=== PATIENT | female | born 1945 | race Caucasian/White ===

== ENCOUNTER 2020-09-16 00:15 | Inpatient (IN) | payer BC, OTHER ==
[2020-09-16] MEDS ORDERED: FUROSEMIDE 40 MG/4 ML INJECTABLE VIAL IVPUSH ONE (02:27)
[2020-09-16] MEDS ORDERED: FUROSEMIDE 40 MG/4 ML INJECTABLE VIAL ONE ×2 (02:51→12:44)
[2020-09-16 02:59] LABS: BASO % 0.9 % (0-2.0); EOS % 0.4 % (0-4.5); HEMATOCRIT 35.5 % (32.4-45.2); HEMOGLOBIN 11.1 GM/dL (10.7-15.3); LYMPH % 6.9 % (8-40); MCH 24.8 pg (25.7-33.7); MCHC 31.2 g/dl (32.0-36.0); MEAN CELL VOLUME 79.6 fl (80-96); MEAN PLT VOLUME 10.5 fl (7.5-11.1); MONO % 6.7 % (3.8-10.2); NEUT % 85.1 % (42.8-82.8); PLATELET COUNT 139 10^3/uL (134-434); RBC 4.46 M/mm3 (3.60-5.2); RDW 18.8 % (11.6-15.6); WHITE BLOOD COUNT 8.1 K/mm3 (4.0-10.0)
[2020-09-16 03:21] LABS: ALBUMIN 3.2 g/dl (3.4-5.0); BLOOD UREA NITROGEN 50.5 mg/dL (7-18); CALCIUM 8.5 mg/dL (8.5-10.1)
[2020-09-16 03:25] LABS: CREATININE 1.9 mg/dL (0.55-1.3)
[2020-09-16 03:26] LABS: BILIRUBIN,TOTAL 0.9 mg/dL (0.2-1); TOT PROT 6.1 g/dl (6.4-8.2)
[2020-09-16 03:29] LABS: N-TERMINAL BNP 16593.1 pg/ml (5-450)
[2020-09-16] MEDS ORDERED: CALCIUM GLUCONATE 10% - 1,000 MG/10 ML VIAL IVPUSH ONE (06:40)
[2020-09-16] MEDS ORDERED: DEXTROSE 50%-WATER - 25 GM/50 ML VIAL IVPUSH ONE (07:04)
[2020-09-16] MEDS ORDERED: INSULIN REGULAR HUMAN 100 UNITS/ML *VIAL IVPUSH ONE (07:04)
[2020-09-16] MEDS ORDERED: CALCIUM GLUCONATE 10% - 1,000 MG/10 ML VIAL ONE (07:47)
[2020-09-16] MEDS ORDERED: DEXTROSE 50%-WATER - 25 GM/50 ML VIAL ONE (07:54)
[2020-09-16] MEDS ORDERED: ALBUTEROL SO4 HFA INHALER IH ONE (08:03)
[2020-09-16] MEDS: ALBUTEROL SO4 HFA INHALER IH ONE ×2 (08:15→08:37)
[2020-09-16] MEDS: INSULIN SLIDING SCALE (NOVOLOG) 1 VIAL SQ SCH ×3 (08:38→17:22)
[2020-09-16 08:42] LABS: CALCIUM 8.9 mg/dL (8.5-10.1)
[2020-09-16 08:43] LABS: ALBUMIN 3.4 g/dl (3.4-5.0); BLOOD UREA NITROGEN 46.2 mg/dL (7-18)
[2020-09-16 08:46] LABS: CREATININE 1.7 mg/dL (0.55-1.3)
[2020-09-16 08:47] LABS: BILIRUBIN,TOTAL 0.8 mg/dL (0.2-1)
[2020-09-16 08:48] LABS: TOT PROT 6.1 g/dl (6.4-8.2)
[2020-09-16] MEDS ORDERED: ASPIRIN COATED 81 MG TABLET.EC ONE (09:21)
[2020-09-16] MEDS ORDERED: amLODIPine BESYLATE 5 MG TABLET (FP) ONE (09:22)
[2020-09-16] MEDS ORDERED: PT OWN MED DRAWER 7, Y5N ONE (09:23)
[2020-09-16] MEDS: ASPIRIN COATED 81 MG TABLET.EC PO SCH (09:37)
[2020-09-16] MEDS: ISOSORBIDE MONONITRATE 30 MG TAB.SR.24H (FP) PO SCH (09:37)
[2020-09-16] MEDS: amLODIPine BESYLATE 5 MG TABLET (FP) PO SCH (09:37)
[2020-09-16] MEDS ORDERED: PATIENT'S OWN MEDICATION (NON-FORMULARY) (Icosapent Ethyl [Vascepa] 1 GM Capsule) PO SCH (10:00)
[2020-09-16 10:19] LABS: MAGNESIUM 2.1 mg/dL (1.8-2.4)
[2020-09-16 10:23] LABS: PHOSPHOROUS 4.3 mg/dL (2.5-4.9)
[2020-09-16] MEDS ORDERED: SODIUM ZIRCONIUM CYCLOSILICATE (LOKELMA) 5 GM PACKET ONE (12:43)
[2020-09-16] MEDS ORDERED: HEPARIN NA (PORCINE) 5,000 UNITS/ML 1ML VIAL ONE (12:44)
[2020-09-16] MEDS ORDERED: SODIUM ZIRCONIUM CYCLOSILICATE (LOKELMA) 5 GM PACKET PO ONE (12:45)
[2020-09-16] MEDS: HEPARIN NA (PORCINE) 5,000 UNITS/ML 1ML VIAL SQ SCH ×2 (13:01→21:14)
[2020-09-16] MEDS: FUROSEMIDE 40 MG/4 ML INJECTABLE VIAL IVPUSH SCH (13:01)
[2020-09-16 20:05] VITALS: BMI 29.4
[2020-09-16] MEDS: ATORVASTATIN CA 80 MG TABLET (FP) PO SCH (21:14)
[2020-09-16] MEDS ORDERED: FUROSEMIDE 40 MG/4 ML INJECTABLE VIAL IVPUSH SCH (22:00)
[2020-09-17] MEDS: FUROSEMIDE 40 MG/4 ML INJECTABLE VIAL IVPUSH SCH ×2 (06:05→13:11)
[2020-09-17] MEDS: HEPARIN NA (PORCINE) 5,000 UNITS/ML 1ML VIAL SQ SCH ×3 (06:05→21:39)
[2020-09-17] MEDS: INSULIN SLIDING SCALE (NOVOLOG) 1 VIAL SQ SCH ×4 (06:08→17:00)
[2020-09-17 07:29] LABS: HEMATOCRIT 33.6 % (32.4-45.2); HEMOGLOBIN 10.6 GM/dL (10.7-15.3); MCH 24.9 pg (25.7-33.7); MCHC 31.6 g/dl (32.0-36.0); MEAN CELL VOLUME 78.8 fl (80-96); MEAN PLT VOLUME 10.5 fl (7.5-11.1); PLATELET COUNT 114 10^3/uL (134-434); RBC 4.26 M/mm3 (3.60-5.2); RDW 18.6 % (11.6-15.6)
[2020-09-17 07:40] LABS: CALCIUM 8.5 mg/dL (8.5-10.1)
[2020-09-17 07:41] LABS: BLOOD UREA NITROGEN 50.1 mg/dL (7-18)
[2020-09-17 07:48] LABS: CREATININE 1.5 mg/dL (0.55-1.3)
[2020-09-17] MEDS: amLODIPine BESYLATE 5 MG TABLET (FP) PO SCH (09:31)
[2020-09-17] MEDS: ISOSORBIDE MONONITRATE 30 MG TAB.SR.24H (FP) PO SCH (09:31)
[2020-09-17] MEDS: ASPIRIN COATED 81 MG TABLET.EC PO SCH (09:31)
[2020-09-17] MEDS: ATORVASTATIN CA 80 MG TABLET (FP) PO SCH (21:39)
[2020-09-18] MEDS: HEPARIN NA (PORCINE) 5,000 UNITS/ML 1ML VIAL SQ SCH ×3 (05:57→21:59)
[2020-09-18] MEDS: FUROSEMIDE 40 MG/4 ML INJECTABLE VIAL IVPUSH SCH ×2 (05:58→13:04)
[2020-09-18] MEDS: INSULIN SLIDING SCALE (NOVOLOG) 1 VIAL SQ SCH ×3 (06:03→17:51)
[2020-09-18 07:25] LABS: EOS % 3.2 % (0-4.5); HEMATOCRIT 34.1 % (32.4-45.2); HEMOGLOBIN 10.7 GM/dL (10.7-15.3); LYMPH % 16.3 % (8-40); MCH 24.8 pg (25.7-33.7); MCHC 31.4 g/dl (32.0-36.0); MEAN PLT VOLUME 10.2 fl (7.5-11.1); MONO % 8.1 % (3.8-10.2); NEUT % 71.4 % (42.8-82.8); PLATELET COUNT 127 10^3/uL (134-434); RBC 4.32 M/mm3 (3.60-5.2); RDW 18.9 % (11.6-15.6); WHITE BLOOD COUNT 6.4 K/mm3 (4.0-10.0)
[2020-09-18 08:02] LABS: ALBUMIN 3.2 g/dl (3.4-5.0); BLOOD UREA NITROGEN 46.6 mg/dL (7-18); MAGNESIUM 1.8 mg/dL (1.8-2.4)
[2020-09-18 08:05] LABS: CREATININE 1.4 mg/dL (0.55-1.3)
[2020-09-18 08:06] LABS: PHOSPHOROUS 4.2 mg/dL (2.5-4.9)
[2020-09-18 08:07] LABS: BILIRUBIN,TOTAL 1.2 mg/dL (0.2-1); TOT PROT 5.9 g/dl (6.4-8.2)
[2020-09-18] MEDS: amLODIPine BESYLATE 5 MG TABLET (FP) PO SCH (10:05)
[2020-09-18] MEDS: ASPIRIN COATED 81 MG TABLET.EC PO SCH (10:05)
[2020-09-18] MEDS: ISOSORBIDE MONONITRATE 30 MG TAB.SR.24H (FP) PO SCH (10:05)
[2020-09-18] MEDS ORDERED: MAGNESIUM SULF 50% (8.12 MEQ/2 ML-1 GM VIAL) IVPB ONE (11:37)
[2020-09-18] MEDS ORDERED: DOCUSATE SODIUM 100 MG CAPSULE (FP) PO ONE (16:36)
[2020-09-18] MEDS: ATORVASTATIN CA 80 MG TABLET (FP) PO SCH (21:58)
[2020-09-19] MEDS: FUROSEMIDE 40 MG/4 ML INJECTABLE VIAL IVPUSH SCH ×2 (06:43→14:06)
[2020-09-19] MEDS: INSULIN SLIDING SCALE (NOVOLOG) 1 VIAL SQ SCH ×3 (06:44→17:00)
[2020-09-19] MEDS: HEPARIN NA (PORCINE) 5,000 UNITS/ML 1ML VIAL SQ SCH ×3 (06:44→21:38)
[2020-09-19 07:30] LABS: BASO % 1.1 % (0-2.0); EOS % 2.5 % (0-4.5); HEMATOCRIT 31.9 % (32.4-45.2); HEMOGLOBIN 10.1 GM/dL (10.7-15.3); LYMPH % 21.2 % (8-40); MCH 24.8 pg (25.7-33.7); MCHC 31.8 g/dl (32.0-36.0); MEAN CELL VOLUME 77.9 fl (80-96); MONO % 10.3 % (3.8-10.2); NEUT % 64.9 % (42.8-82.8); PLATELET COUNT 129 10^3/uL (134-434); RBC 4.09 M/mm3 (3.60-5.2); RDW 18.3 % (11.6-15.6); WHITE BLOOD COUNT 5.9 K/mm3 (4.0-10.0)
[2020-09-19 08:04] LABS: ALBUMIN 3.1 g/dl (3.4-5.0); BLOOD UREA NITROGEN 40.5 mg/dL (7-18)
[2020-09-19 08:05] LABS: BILIRUBIN,TOTAL 1.2 mg/dL (0.2-1); MAGNESIUM 1.7 mg/dL (1.8-2.4); TOT PROT 5.8 g/dl (6.4-8.2)
[2020-09-19 08:07] LABS: CREATININE 1.3 mg/dL (0.55-1.3)
[2020-09-19 08:08] LABS: CHOLESTEROL 118 mg/dL (50-200)
[2020-09-19 08:09] LABS: LDL CHOLESTEROL (ONLY SJRH) 63 mg/dL (5-100); TRIGLYCERIDES 77 mg/dL (0-150)
[2020-09-19 08:11] LABS: HDL CHOLESTEROL 48 mg/dL (40-60)
[2020-09-19] MEDS ORDERED: POTASSIUM CHLORIDE TABS 20 MEQ TABLET.ER (FP) PO ONE (08:59)
[2020-09-19] MEDS ORDERED: MAGNESIUM SULF 50% (8.12 MEQ/2 ML-1 GM VIAL) IVPB ONE (08:59)
[2020-09-19] MEDS: amLODIPine BESYLATE 5 MG TABLET (FP) PO SCH (09:00)
[2020-09-19] MEDS: ASPIRIN COATED 81 MG TABLET.EC PO SCH (09:00)
[2020-09-19] MEDS: ISOSORBIDE MONONITRATE 30 MG TAB.SR.24H (FP) PO SCH (09:00)
[2020-09-19] MEDS ORDERED: METOLAZONE 5 MG TABLET PO SCH (13:30)
[2020-09-19] MEDS: METOLAZONE 5 MG TABLET PO SCH (13:41)
[2020-09-19] MEDS ORDERED: INSULIN (NOVOLOG) ASPART 100 UNITS/ML 10ML VIAL ONE (16:56)
[2020-09-19] MEDS: ATORVASTATIN CA 80 MG TABLET (FP) PO SCH (21:39)
[2020-09-20] MEDS: HEPARIN NA (PORCINE) 5,000 UNITS/ML 1ML VIAL SQ SCH ×3 (06:00→21:07)
[2020-09-20] MEDS: FUROSEMIDE 40 MG/4 ML INJECTABLE VIAL IVPUSH SCH ×2 (06:01→13:54)
[2020-09-20] MEDS: INSULIN SLIDING SCALE (NOVOLOG) 1 VIAL SQ SCH ×3 (06:03→17:17)
[2020-09-20 08:11] LABS: BASO % 1.1 % (0-2.0); HEMATOCRIT 34.1 % (32.4-45.2); HEMOGLOBIN 10.5 GM/dL (10.7-15.3); LYMPH % 24.1 % (8-40); MCH 24.1 pg (25.7-33.7); MCHC 30.7 g/dl (32.0-36.0); MEAN CELL VOLUME 78.5 fl (80-96); MEAN PLT VOLUME 10.5 fl (7.5-11.1); MONO % 10.1 % (3.8-10.2); NEUT % 61.7 % (42.8-82.8); PLATELET COUNT 160 10^3/uL (134-434); RBC 4.35 M/mm3 (3.60-5.2); RDW 18.8 % (11.6-15.6); WHITE BLOOD COUNT 6.7 K/mm3 (4.0-10.0)
[2020-09-20 08:32] LABS: ALBUMIN 3.4 g/dl (3.4-5.0); BLOOD UREA NITROGEN 48.1 mg/dL (7-18); CALCIUM 9.3 mg/dL (8.5-10.1)
[2020-09-20 08:35] LABS: CREATININE 1.6 mg/dL (0.55-1.3)
[2020-09-20 08:36] LABS: PHOSPHOROUS 3.5 mg/dL (2.5-4.9)
[2020-09-20 08:37] LABS: BILIRUBIN,TOTAL 1.3 mg/dL (0.2-1); TOT PROT 6.5 g/dl (6.4-8.2)
[2020-09-20] MEDS: ASPIRIN COATED 81 MG TABLET.EC PO SCH (11:10)
[2020-09-20] MEDS: amLODIPine BESYLATE 5 MG TABLET (FP) PO SCH (11:10)
[2020-09-20] MEDS: ISOSORBIDE MONONITRATE 30 MG TAB.SR.24H (FP) PO SCH (11:10)
[2020-09-20] MEDS ORDERED: PT OWN MED DRAWER 7, Y5N ONE (13:27)
[2020-09-20] MEDS: METOLAZONE 5 MG TABLET PO SCH (13:29)
[2020-09-20] MEDS: POLYETHYLENE GLYCOL (HEALTHYLAX) 3350 17 GM PACKET PO SCH (18:38)
[2020-09-20] MEDS: ATORVASTATIN CA 80 MG TABLET (FP) PO SCH (21:07)
[2020-09-21] MEDS: FUROSEMIDE 40 MG/4 ML INJECTABLE VIAL IVPUSH SCH ×2 (05:35→15:10)
[2020-09-21] MEDS: HEPARIN NA (PORCINE) 5,000 UNITS/ML 1ML VIAL SQ SCH ×3 (05:35→21:00)
[2020-09-21] MEDS: INSULIN SLIDING SCALE (NOVOLOG) 1 VIAL SQ SCH ×3 (06:13→16:31)
[2020-09-21 08:19] LABS: BASO % 0.9 % (0-2.0); EOS % 2.6 % (0-4.5); HEMATOCRIT 32.7 % (32.4-45.2); HEMOGLOBIN 10.5 GM/dL (10.7-15.3); LYMPH % 21.7 % (8-40); MCHC 32.2 g/dl (32.0-36.0); MEAN CELL VOLUME 77.5 fl (80-96); MEAN PLT VOLUME 10.6 fl (7.5-11.1); MONO % 9.3 % (3.8-10.2); NEUT % 65.5 % (42.8-82.8); PLATELET COUNT 144 10^3/uL (134-434); RBC 4.22 M/mm3 (3.60-5.2); RDW 18.8 % (11.6-15.6); WHITE BLOOD COUNT 7.3 K/mm3 (4.0-10.0)
[2020-09-21 08:38] LABS: ALBUMIN 3.6 g/dl (3.4-5.0); BLOOD UREA NITROGEN 52.2 mg/dL (7-18); CALCIUM 9.6 mg/dL (8.5-10.1)
[2020-09-21 08:41] LABS: BILIRUBIN,TOTAL 1.5 mg/dL (0.2-1); CREATININE 1.5 mg/dL (0.55-1.3)
[2020-09-21 08:42] LABS: PHOSPHOROUS 3.3 mg/dL (2.5-4.9); TOT PROT 6.7 g/dl (6.4-8.2)
[2020-09-21] MEDS: ASPIRIN COATED 81 MG TABLET.EC PO SCH (09:49)
[2020-09-21] MEDS: POLYETHYLENE GLYCOL (HEALTHYLAX) 3350 17 GM PACKET PO SCH (09:49)
[2020-09-21] MEDS: ISOSORBIDE MONONITRATE 30 MG TAB.SR.24H (FP) PO SCH (09:49)
[2020-09-21] MEDS: amLODIPine BESYLATE 5 MG TABLET (FP) PO SCH (09:49)
[2020-09-21] MEDS: ATORVASTATIN CA 80 MG TABLET (FP) PO SCH (21:13)
[2020-09-22] MEDS: HEPARIN NA (PORCINE) 5,000 UNITS/ML 1ML VIAL SQ SCH ×3 (05:48→21:10)
[2020-09-22] MEDS: FUROSEMIDE 40 MG/4 ML INJECTABLE VIAL IVPUSH SCH (05:48)
[2020-09-22] MEDS: INSULIN SLIDING SCALE (NOVOLOG) 1 VIAL SQ SCH ×3 (06:01→16:33)
[2020-09-22 08:06] LABS: BASO % 0.7 % (0-2.0); EOS % 2.1 % (0-4.5); HEMATOCRIT 32.3 % (32.4-45.2); HEMOGLOBIN 10.1 GM/dL (10.7-15.3); LYMPH % 21.4 % (8-40); MCH 24.5 pg (25.7-33.7); MCHC 31.3 g/dl (32.0-36.0); MEAN CELL VOLUME 78.2 fl (80-96); MEAN PLT VOLUME 11.4 fl (7.5-11.1); MONO % 13.4 % (3.8-10.2); NEUT % 62.4 % (42.8-82.8); PLATELET COUNT 129 10^3/uL (134-434); RBC 4.13 M/mm3 (3.60-5.2); RDW 18.8 % (11.6-15.6); WHITE BLOOD COUNT 5.6 K/mm3 (4.0-10.0)
[2020-09-22 08:29] LABS: ALBUMIN 3.3 g/dl (3.4-5.0)
[2020-09-22 08:30] LABS: BLOOD UREA NITROGEN 51.1 mg/dL (7-18)
[2020-09-22 08:33] LABS: CREATININE 1.9 mg/dL (0.55-1.3); PHOSPHOROUS 3.4 mg/dL (2.5-4.9)
[2020-09-22 08:34] LABS: BILIRUBIN,TOTAL 1.3 mg/dL (0.2-1); TOT PROT 6.2 g/dl (6.4-8.2)
[2020-09-22] MEDS: POLYETHYLENE GLYCOL (HEALTHYLAX) 3350 17 GM PACKET PO SCH (09:29)
[2020-09-22] MEDS: ISOSORBIDE MONONITRATE 30 MG TAB.SR.24H (FP) PO SCH (09:29)
[2020-09-22] MEDS: amLODIPine BESYLATE 5 MG TABLET (FP) PO SCH (09:29)
[2020-09-22] MEDS: ASPIRIN COATED 81 MG TABLET.EC PO SCH (09:29)
[2020-09-22] MEDS ORDERED: MAGNESIUM HYDROX 2400MG/30ML ORAL SUSPENSION 30 ML CUP PO ONE (12:00)
[2020-09-22] MEDS: BACITRACIN 15 GM TUBE TOPICAL OINTMENT TP SCH ×2 (16:29→21:12)
[2020-09-22] MEDS: ATORVASTATIN CA 80 MG TABLET (FP) PO SCH (21:10)
[2020-09-22] MEDS: SENNOSIDES/DOCUSATE COMBO (SENNA PLUS) TABLET (UD) PO SCH (21:10)
[2020-09-23] MEDS: HEPARIN NA (PORCINE) 5,000 UNITS/ML 1ML VIAL SQ SCH ×3 (06:12→21:31)
[2020-09-23] MEDS: INSULIN SLIDING SCALE (NOVOLOG) 1 VIAL SQ SCH ×3 (06:38→17:16)
[2020-09-23 08:11] LABS: BASO % 0.9 % (0-2.0); EOS % 2.3 % (0-4.5); HEMATOCRIT 33.2 % (32.4-45.2); HEMOGLOBIN 10.3 GM/dL (10.7-15.3); LYMPH % 22.5 % (8-40); MCH 24.4 pg (25.7-33.7); MCHC 30.9 g/dl (32.0-36.0); MEAN CELL VOLUME 78.8 fl (80-96); MEAN PLT VOLUME 11.1 fl (7.5-11.1); NEUT % 61.3 % (42.8-82.8); PLATELET COUNT 127 10^3/uL (134-434); RBC 4.21 M/mm3 (3.60-5.2); RDW 18.7 % (11.6-15.6); WHITE BLOOD COUNT 6.4 K/mm3 (4.0-10.0)
[2020-09-23 08:36] LABS: CALCIUM 9.1 mg/dL (8.5-10.1)
[2020-09-23 08:37] LABS: ALBUMIN 3.6 g/dl (3.4-5.0); BLOOD UREA NITROGEN 55.6 mg/dL (7-18); MAGNESIUM 2.4 mg/dL (1.8-2.4)
[2020-09-23 08:39] LABS: BILIRUBIN,TOTAL 1.4 mg/dL (0.2-1); TOT PROT 6.9 g/dl (6.4-8.2)
[2020-09-23 08:40] LABS: CREATININE 2.1 mg/dL (0.55-1.3)
[2020-09-23] MEDS ORDERED: FUROSEMIDE 40 MG/4 ML INJECTABLE VIAL IVPUSH SCH (10:00)
[2020-09-23] MEDS: ASPIRIN COATED 81 MG TABLET.EC PO SCH (10:02)
[2020-09-23] MEDS: BACITRACIN 15 GM TUBE TOPICAL OINTMENT TP SCH ×2 (10:02→21:35)
[2020-09-23] MEDS: ISOSORBIDE MONONITRATE 30 MG TAB.SR.24H (FP) PO SCH (10:02)
[2020-09-23] MEDS: amLODIPine BESYLATE 5 MG TABLET (FP) PO SCH (10:02)
[2020-09-23 10:48] LABS: N-TERMINAL BNP 12031.6 pg/ml (5-450)
[2020-09-23] MEDS ORDERED: SODIUM PHOSPHATE/NA BIPHOS 133 ML ENEMA RC ONE (13:33)
[2020-09-23] MEDS: SENNOSIDES/DOCUSATE COMBO (SENNA PLUS) TABLET (UD) PO SCH (21:31)
[2020-09-23] MEDS: ATORVASTATIN CA 80 MG TABLET (FP) PO SCH (21:31)
[2020-09-24] MEDS: HEPARIN NA (PORCINE) 5,000 UNITS/ML 1ML VIAL SQ SCH ×2 (06:20→14:57)
[2020-09-24] MEDS: INSULIN SLIDING SCALE (NOVOLOG) 1 VIAL SQ SCH ×2 (06:21→12:51)
[2020-09-24 08:12] LABS: BASO % 0.9 % (0-2.0); EOS % 2.1 % (0-4.5); HEMATOCRIT 32.2 % (32.4-45.2); LYMPH % 18.7 % (8-40); MCH 24.5 pg (25.7-33.7); MCHC 31.1 g/dl (32.0-36.0); MEAN CELL VOLUME 78.7 fl (80-96); NEUT % 66.3 % (42.8-82.8); PLATELET COUNT 130 10^3/uL (134-434); RBC 4.09 M/mm3 (3.60-5.2); RDW 18.3 % (11.6-15.6); WHITE BLOOD COUNT 6.3 K/mm3 (4.0-10.0)
[2020-09-24 08:40] LABS: ALBUMIN 3.3 g/dl (3.4-5.0); BLOOD UREA NITROGEN 61.5 mg/dL (7-18); CALCIUM 8.7 mg/dL (8.5-10.1); MAGNESIUM 2.4 mg/dL (1.8-2.4)
[2020-09-24 08:43] LABS: CREATININE 1.8 mg/dL (0.55-1.3)
[2020-09-24 08:45] LABS: BILIRUBIN,TOTAL 1.1 mg/dL (0.2-1); TOT PROT 6.3 g/dl (6.4-8.2)
[2020-09-24] MEDS: BACITRACIN 15 GM TUBE TOPICAL OINTMENT TP SCH (09:07)
[2020-09-24] MEDS: ISOSORBIDE MONONITRATE 30 MG TAB.SR.24H (FP) PO SCH (09:07)
[2020-09-24] MEDS: amLODIPine BESYLATE 5 MG TABLET (FP) PO SCH (09:07)
[2020-09-24] MEDS: ASPIRIN COATED 81 MG TABLET.EC PO SCH (09:07)
[2020-09-24] MEDS ORDERED: INSULIN (LEVEMIR) 100 UNITS/ML UNITS SQ ONE (12:55)
[2020-09-24] MEDS ORDERED: INSULIN (NOVOLOG) ASPART 100 UNITS/ML 10ML VIAL ONE (12:55)
[2020-09-24 15:19] VITALS: BP 133/59; PULSE 81; TEMP 97.8
== END 2020-09-24 16:11 | disposition home or self-care (01) | DRG 291 ==
LOC: JER 00:15 → JERBED 02:44 → J4W 19:10
PROVIDERS: ADMIT Hospitalist; ATTEND Internal Medicine
DX: I13.0 Hypertensive heart and chronic kidney disease with heart failure and stage 1 through stage 4 chronic kidney disease, or unspecified chronic kidney disease (principal); I50.33 Acute on chronic diastolic (congestive) heart failure; N17.9 Acute kidney failure, unspecified; R18.8 Other ascites; E87.3 Alkalosis; I45.10 Unspecified right bundle-branch block; E78.5 Hyperlipidemia, unspecified; K59.09 Other constipation; I25.10 Atherosclerotic heart disease of native coronary artery without angina pectoris; J45.909 Unspecified asthma, uncomplicated; K21.9 Gastro-esophageal reflux disease without esophagitis; K57.90 Diverticulosis of intestine, part unspecified, without perforation or abscess without bleeding; E87.5 Hyperkalemia; I27.20 Pulmonary hypertension, unspecified; I35.0 Nonrheumatic aortic (valve) stenosis; E11.22 Type 2 diabetes mellitus with diabetic chronic kidney disease; N18.30 Chronic kidney disease, stage 3 unspecified; I65.21 Occlusion and stenosis of right carotid artery; Z95.1 Presence of aortocoronary bypass graft; Z95.5 Presence of coronary angioplasty implant and graft
CPT/HCPCS: 36415; 71045-TC-FY; 74176-TC; 80048; 80053; 80061; 82550; 82962; 83036; 83721; 83735; 83880; 84100; 84443; 84484; 85025; 85027; 93005; 93010; 93306-TC; 97116-GP; 97161-GP; 99285-25; C9803; J1644; U0003; U0005

== ENCOUNTER 2021-02-25 11:49 | Inpatient (IN) | payer BC, OTHER ==
[2021-02-25] MEDS ORDERED: FUROSEMIDE 40 MG/4 ML INJECTABLE VIAL ONE (13:38)
[2021-02-25] MEDS: FUROSEMIDE 40 MG/4 ML INJECTABLE VIAL IVPUSH SCH (13:59)
[2021-02-25 14:35] LABS: BASO % 0.5 % (0-2.0); EOS % 0.3 % (0-4.5); HEMATOCRIT 36.7 % (32.4-45.2); HEMOGLOBIN 11.4 GM/dL (10.7-15.3); LYMPH % 5.5 % (8-40); MCH 23.9 pg (25.7-33.7); MCHC 31.2 g/dl (32.0-36.0); MEAN CELL VOLUME 76.7 fl (80-96); MONO % 7.6 % (3.8-10.2); NEUT % 86.1 % (42.8-82.8); PLATELET COUNT 175 10^3/uL (134-434); RBC 4.78 M/mm3 (3.60-5.2); RDW 19.3 % (11.6-15.6); WHITE BLOOD COUNT 9.4 K/mm3 (4.0-10.0)
[2021-02-25 14:55] LABS: CALCIUM 9.4 mg/dL (8.5-10.1)
[2021-02-25 14:56] LABS: ALBUMIN 3.1 g/dl (3.4-5.0)
[2021-02-25 14:59] LABS: CREATININE 1.5 mg/dL (0.55-1.3)
[2021-02-25 15:00] LABS: BILIRUBIN,TOTAL 1.4 mg/dL (0.2-1); TOT PROT 7.2 g/dl (6.4-8.2)
[2021-02-25 15:05] LABS: N-TERMINAL BNP 27523.6 pg/ml (5-450)
[2021-02-25] MEDS: HEPARIN NA (PORCINE) 5,000 UNITS/ML 1ML VIAL SQ SCH (22:30)
[2021-02-25] MEDS: INSULIN SLIDING SCALE (NOVOLOG) 1 VIAL SQ SCH (22:30)
[2021-02-25] MEDS: ATORVASTATIN CA 80 MG TABLET (FP) PO SCH (22:30)
[2021-02-26] MEDS: HEPARIN NA (PORCINE) 5,000 UNITS/ML 1ML VIAL SQ SCH ×3 (06:00→21:50)
[2021-02-26 07:03] LABS: BASO % 0.4 % (0-2.0); EOS % 0.1 % (0-4.5); HEMATOCRIT 32.2 % (32.4-45.2); HEMOGLOBIN 10.2 GM/dL (10.7-15.3); MCH 24.4 pg (25.7-33.7); MCHC 31.7 g/dl (32.0-36.0); MEAN PLT VOLUME 9.7 fl (7.5-11.1); MONO % 9.3 % (3.8-10.2); NEUT % 85.2 % (42.8-82.8); PLATELET COUNT 151 10^3/uL (134-434); RBC 4.18 M/mm3 (3.60-5.2); RDW 19.2 % (11.6-15.6); WHITE BLOOD COUNT 9.5 K/mm3 (4.0-10.0)
[2021-02-26 07:30] LABS: BLOOD UREA NITROGEN 51.9 mg/dL (7-18); CALCIUM 9.2 mg/dL (8.5-10.1); MAGNESIUM 2.6 mg/dL (1.8-2.4)
[2021-02-26 07:34] LABS: CREATININE 1.4 mg/dL (0.55-1.3); PHOSPHOROUS 4.2 mg/dL (2.5-4.9)
[2021-02-26 07:35] LABS: BILIRUBIN,TOTAL 1.4 mg/dL (0.2-1); TOT PROT 6.5 g/dl (6.4-8.2)
[2021-02-26] MEDS: INSULIN SLIDING SCALE (NOVOLOG) 1 VIAL SQ SCH ×4 (07:45→21:55)
[2021-02-26] MEDS: ASPIRIN 81 MG CHEWABLE TABLETS PO SCH (10:36)
[2021-02-26] MEDS: ISOSORBIDE MONONITRATE 30 MG TAB.SR.24H (FP) PO SCH (10:36)
[2021-02-26] MEDS: FUROSEMIDE 40 MG/4 ML INJECTABLE VIAL IVPUSH SCH ×2 (10:37→14:07)
[2021-02-26] MEDS ORDERED: PT OWN MED DRAWER 7, Y5N ONE ×2 (11:28→21:28)
[2021-02-26 12:28] VITALS: BMI 26.4
[2021-02-26 13:06] LABS: CHOLESTEROL 98 mg/dL (50-200); TRIGLYCERIDES 82 mg/dL (0-150)
[2021-02-26 13:08] LABS: LDL CHOLESTEROL (ONLY SJRH) 41 mg/dL (5-100)
[2021-02-26 13:09] LABS: HDL CHOLESTEROL 40 mg/dL (40-60)
[2021-02-26] MEDS ORDERED: FUROSEMIDE 40 MG/4 ML INJECTABLE VIAL IVPUSH ONE (14:00)
[2021-02-26] MEDS: SACUBITRIL/VALSARTAN 24 MG-26 MG TABLET PO SCH (21:50)
[2021-02-26] MEDS: ATORVASTATIN CA 80 MG TABLET (FP) PO SCH (21:55)
[2021-02-27] MEDS: FUROSEMIDE 40 MG/4 ML INJECTABLE VIAL IVPUSH SCH ×2 (06:18→15:39)
[2021-02-27] MEDS: HEPARIN NA (PORCINE) 5,000 UNITS/ML 1ML VIAL SQ SCH ×3 (06:18→21:31)
[2021-02-27] MEDS: INSULIN SLIDING SCALE (NOVOLOG) 1 VIAL SQ SCH ×4 (06:19→21:31)
[2021-02-27 06:58] LABS: HEMATOCRIT 34.6 % (32.4-45.2); HEMOGLOBIN 10.7 GM/dL (10.7-15.3); MCH 23.9 pg (25.7-33.7); MCHC 30.8 g/dl (32.0-36.0); MEAN CELL VOLUME 77.6 fl (80-96); PLATELET COUNT 179 10^3/uL (134-434); RBC 4.46 M/mm3 (3.60-5.2); RDW 19.2 % (11.6-15.6)
[2021-02-27 07:21] LABS: CALCIUM 8.7 mg/dL (8.5-10.1)
[2021-02-27 07:22] LABS: ALBUMIN 2.5 g/dl (3.4-5.0); BLOOD UREA NITROGEN 55.9 mg/dL (7-18); MAGNESIUM 2.4 mg/dL (1.8-2.4)
[2021-02-27 07:24] LABS: CREATININE 1.4 mg/dL (0.55-1.3)
[2021-02-27 07:25] LABS: PHOSPHOROUS 3.3 mg/dL (2.5-4.9)
[2021-02-27 07:26] LABS: BILIRUBIN,TOTAL 1.4 mg/dL (0.2-1); TOT PROT 6.1 g/dl (6.4-8.2)
[2021-02-27] MEDS ORDERED: PT OWN MED DRAWER 7, Y5N ONE ×2 (08:06→11:26)
[2021-02-27] MEDS: ISOSORBIDE MONONITRATE 30 MG TAB.SR.24H (FP) PO SCH (10:23)
[2021-02-27] MEDS: SACUBITRIL/VALSARTAN 24 MG-26 MG TABLET PO SCH ×2 (10:23→21:31)
[2021-02-27] MEDS: ASPIRIN 81 MG CHEWABLE TABLETS PO SCH (10:23)
[2021-02-27] MEDS: ATORVASTATIN CA 80 MG TABLET (FP) PO SCH (21:31)
[2021-02-28] MEDS: FUROSEMIDE 40 MG/4 ML INJECTABLE VIAL IVPUSH SCH ×2 (06:33→13:16)
[2021-02-28] MEDS: INSULIN SLIDING SCALE (NOVOLOG) 1 VIAL SQ SCH ×4 (06:33→21:07)
[2021-02-28] MEDS: HEPARIN NA (PORCINE) 5,000 UNITS/ML 1ML VIAL SQ SCH ×3 (06:33→21:07)
[2021-02-28 07:20] LABS: HEMATOCRIT 36.7 % (32.4-45.2); HEMOGLOBIN 11.5 GM/dL (10.7-15.3); MCHC 31.3 g/dl (32.0-36.0); MEAN CELL VOLUME 76.5 fl (80-96); MEAN PLT VOLUME 9.2 fl (7.5-11.1); PLATELET COUNT 198 10^3/uL (134-434); RDW 19.1 % (11.6-15.6); WHITE BLOOD COUNT 7.9 K/mm3 (4.0-10.0)
[2021-02-28 07:28] LABS: CALCIUM 8.8 mg/dL (8.5-10.1)
[2021-02-28 07:29] LABS: BLOOD UREA NITROGEN 53.2 mg/dL (7-18); MAGNESIUM 2.3 mg/dL (1.8-2.4)
[2021-02-28 07:32] LABS: CREATININE 1.4 mg/dL (0.55-1.3); PHOSPHOROUS 2.7 mg/dL (2.5-4.9)
[2021-02-28] MEDS ORDERED: PT OWN MED DRAWER 7, Y5N ONE ×2 (09:04→20:44)
[2021-02-28] MEDS: ASPIRIN 81 MG CHEWABLE TABLETS PO SCH (10:06)
[2021-02-28] MEDS: ISOSORBIDE MONONITRATE 30 MG TAB.SR.24H (FP) PO SCH (10:06)
[2021-02-28] MEDS: SACUBITRIL/VALSARTAN 24 MG-26 MG TABLET PO SCH ×2 (10:06→21:07)
[2021-02-28] MEDS ORDERED: NAPH,MB-DB/K PH,MBDB POWDER PACKET PO ONE (10:08)
[2021-02-28] MEDS: SPIRONOLACTONE 25 MG TABLET PO SCH (15:47)
[2021-02-28] MEDS: ATORVASTATIN CA 80 MG TABLET (FP) PO SCH (21:07)
[2021-03-01] MEDS: HEPARIN NA (PORCINE) 5,000 UNITS/ML 1ML VIAL SQ SCH ×3 (05:42→21:30)
[2021-03-01] MEDS: INSULIN SLIDING SCALE (NOVOLOG) 1 VIAL SQ SCH ×5 (06:15→21:30)
[2021-03-01 07:39] LABS: HEMATOCRIT 35.6 % (32.4-45.2); HEMOGLOBIN 11.2 GM/dL (10.7-15.3); MCH 24.1 pg (25.7-33.7); MCHC 31.4 g/dl (32.0-36.0); MEAN CELL VOLUME 76.8 fl (80-96); MEAN PLT VOLUME 9.8 fl (7.5-11.1); PLATELET COUNT 217 10^3/uL (134-434); RBC 4.63 M/mm3 (3.60-5.2); RDW 19.5 % (11.6-15.6); WHITE BLOOD COUNT 7.1 K/mm3 (4.0-10.0)
[2021-03-01 07:56] LABS: CALCIUM 8.7 mg/dL (8.5-10.1)
[2021-03-01 07:57] LABS: BLOOD UREA NITROGEN 52.1 mg/dL (7-18); MAGNESIUM 2.1 mg/dL (1.8-2.4)
[2021-03-01 08:00] LABS: CREATININE 1.3 mg/dL (0.55-1.3); PHOSPHOROUS 2.6 mg/dL (2.5-4.9)
[2021-03-01] MEDS: SPIRONOLACTONE 25 MG TABLET PO SCH (10:05)
[2021-03-01] MEDS: ASPIRIN 81 MG CHEWABLE TABLETS PO SCH (10:05)
[2021-03-01] MEDS: ISOSORBIDE MONONITRATE 30 MG TAB.SR.24H (FP) PO SCH (10:05)
[2021-03-01] MEDS: FUROSEMIDE 40 MG/4 ML INJECTABLE VIAL IVPUSH SCH (10:05)
[2021-03-01] MEDS ORDERED: PT OWN MED DRAWER 7, Y5N ONE (10:18)
[2021-03-01] MEDS: SACUBITRIL/VALSARTAN 24 MG-26 MG TABLET PO SCH ×2 (11:33→21:30)
[2021-03-01] MEDS: ATORVASTATIN CA 80 MG TABLET (FP) PO SCH (21:30)
[2021-03-02] MEDS: HEPARIN NA (PORCINE) 5,000 UNITS/ML 1ML VIAL SQ SCH ×2 (05:49→13:38)
[2021-03-02 05:51] VITALS: PULSE 76
[2021-03-02] MEDS: INSULIN SLIDING SCALE (NOVOLOG) 1 VIAL SQ SCH ×2 (06:00→12:35)
[2021-03-02 07:35] LABS: CALCIUM 8.1 mg/dL (8.5-10.1)
[2021-03-02 07:36] LABS: BLOOD UREA NITROGEN 59.1 mg/dL (7-18); MAGNESIUM 2.1 mg/dL (1.8-2.4)
[2021-03-02 07:39] LABS: CREATININE 1.8 mg/dL (0.55-1.3); PHOSPHOROUS 2.7 mg/dL (2.5-4.9)
[2021-03-02 08:18] LABS: HEMATOCRIT 32.6 % (32.4-45.2); HEMOGLOBIN 10.5 GM/dL (10.7-15.3); MCH 24.5 pg (25.7-33.7); MCHC 32.2 g/dl (32.0-36.0); MEAN CELL VOLUME 76.1 fl (80-96); MEAN PLT VOLUME 9.3 fl (7.5-11.1); PLATELET COUNT 159 10^3/uL (134-434); RBC 4.28 M/mm3 (3.60-5.2); RDW 19.2 % (11.6-15.6); WHITE BLOOD COUNT 5.7 K/mm3 (4.0-10.0)
[2021-03-02] MEDS: ISOSORBIDE MONONITRATE 30 MG TAB.SR.24H (FP) PO SCH (10:48)
[2021-03-02] MEDS: FUROSEMIDE 40 MG/4 ML INJECTABLE VIAL IVPUSH SCH (10:48)
[2021-03-02] MEDS: SPIRONOLACTONE 25 MG TABLET PO SCH (10:48)
[2021-03-02] MEDS ORDERED: PT OWN MED DRAWER 7, Y5N ONE (10:53)
[2021-03-02] MEDS: ASPIRIN 81 MG CHEWABLE TABLETS PO SCH (10:55)
[2021-03-02] MEDS: SACUBITRIL/VALSARTAN 24 MG-26 MG TABLET PO SCH (10:55)
[2021-03-02 12:16] VITALS: BP 118/60; TEMP 97.5
== END 2021-03-02 14:30 | disposition home or self-care (01) | DRG 291 ==
LOC: JER 11:49 → JERBED 16:34 → J4W 20:27
PROVIDERS: ADMIT Internal Medicine; ATTEND Internal Medicine
DX: I13.0 Hypertensive heart and chronic kidney disease with heart failure and stage 1 through stage 4 chronic kidney disease, or unspecified chronic kidney disease (principal); J96.01 Acute respiratory failure with hypoxia; I50.43 Acute on chronic combined systolic (congestive) and diastolic (congestive) heart failure; N17.9 Acute kidney failure, unspecified; I25.10 Atherosclerotic heart disease of native coronary artery without angina pectoris; K21.9 Gastro-esophageal reflux disease without esophagitis; E78.5 Hyperlipidemia, unspecified; I45.10 Unspecified right bundle-branch block; I27.20 Pulmonary hypertension, unspecified; E03.8 Other specified hypothyroidism; Z95.1 Presence of aortocoronary bypass graft; R74.01 Elevation of levels of liver transaminase levels; Z79.84 Long term (current) use of oral hypoglycemic drugs; E11.22 Type 2 diabetes mellitus with diabetic chronic kidney disease; N18.9 Chronic kidney disease, unspecified; I34.0 Nonrheumatic mitral (valve) insufficiency; I36.1 Nonrheumatic tricuspid (valve) insufficiency
CPT/HCPCS: 36415; 71045-TC-FY; 76705-TC; 80048; 80053; 80061; 82550; 82962; 83036; 83735; 83880; 84100; 84439; 84443; 84484; 85025; 85027; 93005; 93010; 93306-TC; 94761; 97116-GP; 97161-GP; 99291; C9803; J1644; U0003; U0005

== ENCOUNTER 2021-06-05 12:34 | Inpatient (IN) | payer BC, OTHER ==
[2021-06-05 15:25] LABS: INR 1.45 (0.83-1.09); PROTHROMBIN TIME (PATIENT) 16.7 SEC (9.7-13.0)
[2021-06-05 15:28] LABS: ACTIVATED PTT 28.6 SECONDS (25.2-36.5)
[2021-06-05 15:29] LABS: BASO % 1.2 % (0-2.0); EOS % 0.6 % (0-4.5); HEMATOCRIT 35.2 % (32.4-45.2); HEMOGLOBIN 10.8 GM/dL (10.7-15.3); LYMPH % 17.8 % (8-40); MCH 25.4 pg (25.7-33.7); MCHC 30.8 g/dl (32.0-36.0); MEAN CELL VOLUME 82.5 fl (80-96); MEAN PLT VOLUME 10.5 fl (7.5-11.1); MONO % 11.5 % (3.8-10.2); NEUT % 68.9 % (42.8-82.8); PLATELET COUNT 217 10^3/uL (134-434); RBC 4.26 M/mm3 (3.60-5.2); RDW 16.7 % (11.6-15.6); WHITE BLOOD COUNT 8.8 K/mm3 (4.0-10.0)
[2021-06-05 15:33] LABS: CALCIUM 9.1 mg/dL (8.5-10.1)
[2021-06-05 15:34] LABS: BLOOD UREA NITROGEN 50.9 mg/dL (7-18); MAGNESIUM 2.6 mg/dL (1.8-2.4)
[2021-06-05 15:35] LABS: ALBUMIN 3.3 g/dl (3.4-5.0)
[2021-06-05 15:37] LABS: CREATININE 1.7 mg/dL (0.55-1.3)
[2021-06-05 15:39] LABS: PHOSPHOROUS 4.9 mg/dL (2.5-4.9); TOT PROT 6.5 g/dl (6.4-8.2)
[2021-06-05 15:43] LABS: N-TERMINAL BNP 16218.1 pg/ml (5-450)
[2021-06-05] MEDS ORDERED: FUROSEMIDE 40 MG/4 ML INJECTABLE VIAL IVPUSH ONE (16:12)
[2021-06-05] MEDS ORDERED: FUROSEMIDE 40 MG/4 ML INJECTABLE VIAL ONE (16:37)
[2021-06-05] MEDS ORDERED: ATORVASTATIN CA 80 MG TABLET (FP) PO SCH (22:00)
[2021-06-05] MEDS: HEPARIN NA (PORCINE) 5,000 UNITS/ML 1ML VIAL SQ SCH (22:01)
[2021-06-05] MEDS: SACUBITRIL/VALSARTAN 24 MG-26 MG TABLET PO SCH (22:01)
[2021-06-06 07:01] LABS: BASO % 1.1 % (0-2.0); HEMATOCRIT 32.9 % (32.4-45.2); HEMOGLOBIN 10.3 GM/dL (10.7-15.3); LYMPH % 18.5 % (8-40); MCH 25.7 pg (25.7-33.7); MCHC 31.3 g/dl (32.0-36.0); MEAN CELL VOLUME 82.1 fl (80-96); MEAN PLT VOLUME 10.1 fl (7.5-11.1); MONO % 10.4 % (3.8-10.2); PLATELET COUNT 163 10^3/uL (134-434); RBC 4.01 M/mm3 (3.60-5.2); RDW 16.9 % (11.6-15.6); WHITE BLOOD COUNT 6.4 K/mm3 (4.0-10.0)
[2021-06-06] MEDS: HEPARIN NA (PORCINE) 5,000 UNITS/ML 1ML VIAL SQ SCH ×2 (07:01→14:52)
[2021-06-06 07:29] LABS: ALBUMIN 2.9 g/dl (3.4-5.0); BLOOD UREA NITROGEN 55.2 mg/dL (7-18); CALCIUM 8.7 mg/dL (8.5-10.1); MAGNESIUM 2.5 mg/dL (1.8-2.4)
[2021-06-06 07:32] LABS: CREATININE 1.6 mg/dL (0.55-1.3)
[2021-06-06 07:33] LABS: TOT PROT 5.9 g/dl (6.4-8.2)
[2021-06-06 07:34] LABS: BILIRUBIN,TOTAL 0.9 mg/dL (0.2-1)
[2021-06-06 09:53] LABS: EPI CELLS >36 /uL (0-25.1); HYALINE CASTS 7 /uL (0-3.1); URINE APPEARANCE CLEAR; URINE BACTERIA 130 /uL (0-1359); URINE BILIRUBIN NEGATIVE (NEGATIVE); URINE COLOR YELLOW; URINE GLUCOSE (UA) NEGATIVE (NEGATIVE); URINE KETONE NEGATIVE (NEGATIVE); URINE LEUK ESTERASE TRACE (NEGATIVE); URINE NITRITE NEGATIVE (NEGATIVE); URINE PROTEIN 2+ (NEGATIVE); URINE UROBILINOGEN 0.2 mg/dL (0.2-1.0); URINE WBC 27 /uL (0-25.8)
[2021-06-06] MEDS: SACUBITRIL/VALSARTAN 24 MG-26 MG TABLET PO SCH (09:55)
[2021-06-06] MEDS ORDERED: amLODIPine BESYLATE 10 MG TABLET (FP) PO SCH (10:00)
[2021-06-06] MEDS ORDERED: SPIRONOLACTONE 25 MG TABLET PO SCH (10:00)
[2021-06-06] MEDS ORDERED: FUROSEMIDE 40 MG TABLET (FP) PO SCH (10:00)
[2021-06-06] MEDS ORDERED: ISOSORBIDE MONONITRATE 30 MG TAB.SR.24H (FP) PO SCH (10:00)
[2021-06-06 10:26] VITALS: TEMP 98
[2021-06-06 12:48] VITALS: BMI 26.7
[2021-06-06 17:12] VITALS: BP 119/49; PULSE 66
== END 2021-06-06 17:14 | disposition home or self-care (01) | DRG 291 ==
LOC: JER 12:34 → JERBED 17:20 → J4S 20:24
PROVIDERS: ADMIT Family Medicine; ATTEND Internal Medicine
DX: I13.0 Hypertensive heart and chronic kidney disease with heart failure and stage 1 through stage 4 chronic kidney disease, or unspecified chronic kidney disease (principal); I50.43 Acute on chronic combined systolic (congestive) and diastolic (congestive) heart failure; N17.9 Acute kidney failure, unspecified; I42.9 Cardiomyopathy, unspecified; R13.10 Dysphagia, unspecified; R14.0 Abdominal distension (gaseous); E87.70 Fluid overload, unspecified; E78.5 Hyperlipidemia, unspecified; I25.10 Atherosclerotic heart disease of native coronary artery without angina pectoris; Z95.1 Presence of aortocoronary bypass graft; Z98.61 Coronary angioplasty status
CPT/HCPCS: 36415; 70450-TC; 70490-TC; 71046-TC-FY; 74018-TC-FY; 74230-TC-FY; 80053; 81003; 83735; 83880; 84100; 84439; 84443; 84484; 85025; 85610; 85730; 86850; 86900; 86901; 87077; 87086; 92611-GN; 93005; 93010; 99285-25; C9803-CS; J1644; U0003; U0005

== ENCOUNTER 2022-02-23 16:17 | Inpatient (IN) | payer OTHER ==
[2022-02-23 17:29] LABS: INR 1.09 (0.83-1.09); PROTHROMBIN TIME (PATIENT) 12.6 SEC (9.7-13.0)
[2022-02-23 17:32] LABS: ACTIVATED PTT 32.7 SECONDS (25.2-36.5)
[2022-02-23 17:37] LABS: ALBUMIN 3.8 g/dl (3.4-5.0); BILIRUBIN,TOTAL 1.3 mg/dl (0.2-1); CALCIUM 9.2 mg/dl (8.5-10)
[2022-02-23 17:47] LABS: HEMATOCRIT 36.8 % (32.4-45.2); HEMOGLOBIN 12.2 G/dL (10.7-15.3); MCH 28.4 pg (25.7-33.7); MCHC 33.2 g/dl (32.0-36.0); MEAN CELL VOLUME 85.8 fl (80-96); MEAN PLT VOLUME 10.9 fl (7.5-11.1); PLATELET COUNT 158.7 10^3/uL (134-434); RBC 4.29 10^6/uL (3.60-5.2); RDW 15.8 % (11.6-15.6); WHITE BLOOD COUNT 8.3 10^3/uL (4.0-10.8)
[2022-02-23] MEDS ORDERED: POTASSIUM CHLORIDE TABS 20 MEQ TABLET.ER (FP) PO ONE ×2 (18:00→18:10)
[2022-02-23] MEDS ORDERED: PIPERACILLIN/TAZOB 4.5 GM 4.5 GM in DEXTROSE 5%-WATER 100 ML IVPB ONE (18:01)
[2022-02-23] MEDS ORDERED: VANCOMYCIN 1 GM in D5W (PRE-DOCKED) 1,000 MG/250 ML IVPB ONE (18:01)
[2022-02-23] MEDS ORDERED: POTASSIUM CHLORIDE 20 MEQ PREMIX IVPB 100 ML IVPB ONE (18:05)
[2022-02-23 18:10] LABS: PLATELET ESTIMATE ADEQUATE
[2022-02-23] MEDS ORDERED: KCL 10 MEQ IVPB 20 MEQ/200 ML INFUS.BAG IVPB ONE (18:10)
[2022-02-23] MEDS ORDERED: ACETAMINOPHEN 325 MG TABLET (FP) PO PRN (19:47)
[2022-02-23] MEDS ORDERED: SODIUM CHLORIDE 1,000 ML IV SCH (20:00)
[2022-02-23 20:27] LABS: PHOSPHOROUS 2.9 mg/dl (2.5-4.9)
[2022-02-24] MEDS: INSULIN SLIDING SCALE (NOVOLOG) 1 VIAL SQ SCH ×5 (06:42→21:45)
[2022-02-24 08:29] LABS: CALCIUM 8.6 mg/dl (8.5-10)
[2022-02-24] MEDS: SACUBITRIL/VALSARTAN 24 MG-26 MG TABLET PO SCH (09:17)
[2022-02-24] MEDS: amLODIPine BESYLATE 10 MG TABLET (FP) PO SCH (09:17)
[2022-02-24] MEDS: KCL 10 MEQ IVPB 10 MEQ/100 ML INFUS.BAG IVPB SCH ×6 (09:21→21:30)
[2022-02-24] MEDS ORDERED: FUROSEMIDE 40 MG TABLET (FP) PO SCH (10:00)
[2022-02-24] MEDS ORDERED: SPIRONOLACTONE 25 MG TABLET PO SCH ×2 (10:00→18:20)
[2022-02-24 10:08] LABS: BASO % 0.5 % (0-2.0); EOS % 3.5 % (0-4.5); HEMATOCRIT 34.3 % (32.4-45.2); HEMOGLOBIN 11.2 GM/dL (10.7-15.3); LYMPH % 15.6 % (8-40); MCH 27.8 pg (25.7-33.7); MCHC 32.6 g/dl (32.0-36.0); MEAN CELL VOLUME 85.3 fl (80-96); MEAN PLT VOLUME 10.3 fl (7.5-11.1); MONO % 10.6 % (3.8-10.2); NEUT % 69.8 % (42.8-82.8); PLATELET COUNT 124 10^3/uL (134-434); RBC 4.02 M/mm3 (3.60-5.2); WHITE BLOOD COUNT 5.6 K/mm3 (4.0-10.0)
[2022-02-24] MEDS ORDERED: POTASSIUM CHLORIDE TABS 20 MEQ TABLET.ER (FP) PO ONE (14:30)
[2022-02-24 15:40] LABS: ALBUMIN 3.1 g/dl (3.4-5.0); BILIRUBIN,TOTAL 1.2 mg/dl (0.2-1); CALCIUM 8.5 mg/dl (8.5-10); MAGNESIUM 1.8 mg/dL (1.8-2.4); PHOSPHOROUS 2.9 mg/dl (2.5-4.9); TOT PROT 5.5 g/dl (6.4-8.2)
[2022-02-24 18:17] VITALS: BMI 20.7
[2022-02-24] MEDS: POTASSIUM CHLORIDE ORAL LIQUID 20 MEQ/15 ML PO SCH ×2 (18:28→22:00)
[2022-02-24 18:33] LABS: ALBUMIN 3.2 g/dl (3.4-5.0); BILIRUBIN,TOTAL 1.2 mg/dl (0.2-1); CALCIUM 8.5 mg/dl (8.5-10); CREATININE 0.9 mg/dl (0.55-1.3); PHOSPHOROUS 2.6 mg/dl (2.5-4.9); TOT PROT 5.9 g/dl (6.4-8.2)
[2022-02-24] MEDS: ATORVASTATIN CA 80 MG TABLET (FP) PO SCH (21:33)
[2022-02-25] MEDS: INSULIN SLIDING SCALE (NOVOLOG) 1 VIAL SQ SCH ×4 (06:21→22:58)
[2022-02-25 08:27] LABS: ALBUMIN 2.9 g/dl (3.4-5.0); BILIRUBIN,TOTAL 1.3 mg/dl (0.2-1); CALCIUM 8.5 mg/dl (8.5-10); MAGNESIUM 1.9 mg/dL (1.8-2.4); PHOSPHOROUS 2.2 mg/dl (2.5-4.9); TOT PROT 5.4 g/dl (6.4-8.2)
[2022-02-25] MEDS: amLODIPine BESYLATE 10 MG TABLET (FP) PO SCH (09:16)
[2022-02-25] MEDS: POTASSIUM CHLORIDE ORAL LIQUID 20 MEQ/15 ML PO SCH ×2 (09:16→22:45)
[2022-02-25] MEDS: NAPH,MB-DB/K PH,MBDB POWDER PACKET PO SCH ×3 (09:46→22:45)
[2022-02-25] MEDS: KCL 10 MEQ IVPB 10 MEQ/100 ML INFUS.BAG IVPB SCH ×3 (09:46→11:39)
[2022-02-25 11:13] LABS: INSULIN 4.5 uIU/mL (2.6-24.9)
[2022-02-25] MEDS: ATORVASTATIN CA 80 MG TABLET (FP) PO SCH (22:45)
[2022-02-26] MEDS: NAPH,MB-DB/K PH,MBDB POWDER PACKET PO SCH (06:05)
[2022-02-26] MEDS: INSULIN SLIDING SCALE (NOVOLOG) 1 VIAL SQ SCH ×4 (06:17→21:54)
[2022-02-26 09:08] LABS: ALBUMIN 2.9 g/dl (3.4-5.0); BILIRUBIN,TOTAL 0.8 mg/dl (0.2-1); CALCIUM 8.7 mg/dl (8.5-10); CREATININE 0.9 mg/dl (0.55-1.3); TOT PROT 5.4 g/dl (6.4-8.2)
[2022-02-26] MEDS ORDERED: POTASSIUM CHLORIDE TABS 20 MEQ TABLET.ER (FP) PO ONE (09:29)
[2022-02-26 09:57] LABS: BASO % 0.8 % (0-2.0); EOS % 2.3 % (0-4.5); HEMATOCRIT 37.8 % (32.4-45.2); LYMPH % 7.9 % (8-40); MCH 27.2 pg (25.7-33.7); MCHC 31.7 g/dl (32.0-36.0); MEAN PLT VOLUME 10.8 fl (7.5-11.1); MONO % 8.2 % (3.8-10.2); NEUT % 80.8 % (42.8-82.8); PLATELET COUNT 147 10^3/uL (134-434); WHITE BLOOD COUNT 8.7 K/mm3 (4.0-10.0)
[2022-02-26] MEDS: amLODIPine BESYLATE 10 MG TABLET (FP) PO SCH (10:10)
[2022-02-26] MEDS: KCL 10 MEQ IVPB 10 MEQ/100 ML INFUS.BAG IVPB SCH ×3 (13:08→17:01)
[2022-02-26] MEDS: ATORVASTATIN CA 80 MG TABLET (FP) PO SCH (21:54)
[2022-02-26] MEDS: POTASSIUM CHLORIDE ORAL LIQUID 20 MEQ/15 ML PO SCH (22:00)
[2022-02-27] MEDS: INSULIN SLIDING SCALE (NOVOLOG) 1 VIAL SQ SCH ×4 (06:19→21:48)
[2022-02-27 08:38] LABS: ALBUMIN 2.5 g/dl (3.4-5.0); CALCIUM 8.3 mg/dl (8.5-10); CREATININE 0.9 mg/dl (0.55-1.3); MAGNESIUM 1.8 mg/dL (1.8-2.4); PHOSPHOROUS 2.5 mg/dl (2.5-4.9); TOT PROT 4.9 g/dl (6.4-8.2)
[2022-02-27 10:21] LABS: HEMOGLOBIN 11.6 GM/dL (10.7-15.3); MCH 27.2 pg (25.7-33.7); MCHC 31.5 g/dl (32.0-36.0); MEAN CELL VOLUME 86.4 fl (80-96); MEAN PLT VOLUME 10.8 fl (7.5-11.1); PLATELET COUNT 145 10^3/uL (134-434); RBC 4.28 M/mm3 (3.60-5.2); RDW 15.3 % (11.6-15.6)
[2022-02-27] MEDS: POTASSIUM CHLORIDE ORAL LIQUID 20 MEQ/15 ML PO SCH ×2 (10:31→21:44)
[2022-02-27] MEDS: amLODIPine BESYLATE 10 MG TABLET (FP) PO SCH (10:31)
[2022-02-27] MEDS: KCL 10 MEQ IVPB 10 MEQ/100 ML INFUS.BAG IVPB SCH ×4 (12:01→18:58)
[2022-02-27] MEDS: SACUBITRIL/VALSARTAN 24 MG-26 MG TABLET PO SCH (21:44)
[2022-02-27] MEDS: ATORVASTATIN CA 80 MG TABLET (FP) PO SCH (21:45)
[2022-02-28] MEDS: INSULIN SLIDING SCALE (NOVOLOG) 1 VIAL SQ SCH ×2 (06:18→13:18)
[2022-02-28 06:22] VITALS: RESP 18
[2022-02-28 08:46] LABS: ALBUMIN 2.8 g/dl (3.4-5.0); BILIRUBIN,TOTAL 0.7 mg/dl (0.2-1); CALCIUM 8.6 mg/dl (8.5-10); TOT PROT 5.3 g/dl (6.4-8.2)
[2022-02-28 09:13] VITALS: BP 134/44; PULSE 78; TEMP 98
[2022-02-28] MEDS: amLODIPine BESYLATE 10 MG TABLET (FP) PO SCH (09:13)
[2022-02-28] MEDS: SACUBITRIL/VALSARTAN 24 MG-26 MG TABLET PO SCH (09:13)
[2022-02-28] MEDS: POTASSIUM CHLORIDE ORAL LIQUID 20 MEQ/15 ML PO SCH (09:13)
[2022-02-28 10:43] LABS: BASO % 1.6 % (0-2.0); EOS % 7.2 % (0-4.5); HEMATOCRIT 36.6 % (32.4-45.2); HEMOGLOBIN 11.6 GM/dL (10.7-15.3); LYMPH % 18.6 % (8-40); MCH 27.4 pg (25.7-33.7); MCHC 31.7 g/dl (32.0-36.0); MEAN CELL VOLUME 86.5 fl (80-96); MEAN PLT VOLUME 11.2 fl (7.5-11.1); MONO % 8.8 % (3.8-10.2); NEUT % 63.8 % (42.8-82.8); PLATELET COUNT 162 10^3/uL (134-434); RBC 4.24 M/mm3 (3.60-5.2); RDW 15.3 % (11.6-15.6); WHITE BLOOD COUNT 6.1 K/mm3 (4.0-10.0)
[2022-02-28] MEDS ORDERED: SPIRONOLACTONE 25 MG TABLET PO SCH (12:15)
== END 2022-02-28 14:27 | disposition home or self-care (01) | DRG 389 ==
LOC: FER 16:17 → FM/S 22:26
PROVIDERS: ADMIT Internal Medicine; ATTEND Nurse Practitioner Family
DX: K56.7 Ileus, unspecified (principal); I13.0 Hypertensive heart and chronic kidney disease with heart failure and stage 1 through stage 4 chronic kidney disease, or unspecified chronic kidney disease; I50.22 Chronic systolic (congestive) heart failure; E87.6 Hypokalemia; K63.89 Other specified diseases of intestine; N18.9 Chronic kidney disease, unspecified; R14.0 Abdominal distension (gaseous); E11.9 Type 2 diabetes mellitus without complications; K21.9 Gastro-esophageal reflux disease without esophagitis; E78.5 Hyperlipidemia, unspecified; Z95.1 Presence of aortocoronary bypass graft; Z95.5 Presence of coronary angioplasty implant and graft
CPT/HCPCS: 0241U-QW; 36415; 74019-TC-FY; 74177-TC; 80048; 80053; 82962; 83525; 83527; 83690; 83735; 83880; 84100; 85025; 85027; 85610; 85730; 87045; 87046; 87186; 87324; 87449; 93005; 97116-GP; 97161-GP; 99285-25; Q9967

== ENCOUNTER 2022-04-17 11:22 | Inpatient (IN) | payer OTHER ==
[2022-04-17 12:47] LABS: BASO % 1.2 % (0-2.0); EOS % 1.9 % (0-4.5); HEMATOCRIT 35.3 % (32.4-45.2); HEMOGLOBIN 11.4 GM/dL (10.7-15.3); LYMPH % 10.4 % (8-40); MCH 26.9 pg (25.7-33.7); MCHC 32.2 g/dl (32.0-36.0); MEAN CELL VOLUME 83.6 fl (80-96); MONO % 9.2 % (3.8-10.2); NEUT % 77.3 % (42.8-82.8); PLATELET COUNT 142 10^3/uL (134-434); RBC 4.23 M/mm3 (3.60-5.2); RDW 15.8 % (11.6-15.6); WHITE BLOOD COUNT 6.6 K/mm3 (4.0-10.0)
[2022-04-17 13:13] LABS: BLOOD UREA NITROGEN 29.8 mg/dL (7-18); CALCIUM 9.1 mg/dL (8.5-10.1)
[2022-04-17 13:14] LABS: ALBUMIN 3.2 g/dl (3.4-5.0); MAGNESIUM 2.2 mg/dL (1.8-2.4)
[2022-04-17 13:17] LABS: TOT PROT 6.4 g/dl (6.4-8.2)
[2022-04-17 13:18] LABS: BILIRUBIN,TOTAL 0.8 mg/dL (0.2-1)
[2022-04-17 14:06] LABS: PHOSPHOROUS 3.6 mg/dL (2.5-4.9)
[2022-04-17] MEDS ORDERED: ACETAMINOPHEN 325 MG TABLET (FP) PO PRN (17:36)
[2022-04-17] MEDS ORDERED: ONDANSETRON 4 MG/2 ML VIAL IVPUSH PRN (17:39)
[2022-04-17] MEDS: SPIRONOLACTONE 25 MG TABLET PO SCH (23:32)
[2022-04-18] MEDS: ATORVASTATIN CA 80 MG TABLET (FP) PO SCH ×2 (00:04→21:27)
[2022-04-18] MEDS: INSULIN SLIDING SCALE (NOVOLOG) 1 VIAL SQ SCH ×5 (00:08→21:28)
[2022-04-18] MEDS: SACUBITRIL/VALSARTAN 24 MG-26 MG TABLET PO SCH ×3 (00:12→21:28)
[2022-04-18 00:31] LABS: CHOLESTEROL 118 mg/dL (50-200); TRIGLYCERIDES 140 mg/dL (0-150)
[2022-04-18 00:33] LABS: LDL CHOLESTEROL (ONLY SJRH) 57 mg/dL (5-100)
[2022-04-18 00:34] LABS: HDL CHOLESTEROL 48 mg/dL (40-60)
[2022-04-18] MEDS: SPIRONOLACTONE 25 MG TABLET PO SCH (09:04)
[2022-04-18] MEDS: ENOXAPARIN NA (PORCINE) 40 MG/0.4 ML DISP.SYRIN SQ SCH (09:04)
[2022-04-18] MEDS: FUROSEMIDE 40 MG TABLET (FP) PO SCH (09:04)
[2022-04-18 10:43] LABS: HEMATOCRIT 36.9 % (32.4-45.2); HEMOGLOBIN 11.8 GM/dL (10.7-15.3); MCH 26.5 pg (25.7-33.7); MEAN PLT VOLUME 10.9 fl (7.5-11.1); PLATELET COUNT 121 10^3/uL (134-434); RBC 4.44 M/mm3 (3.60-5.2); RDW 15.3 % (11.6-15.6); WHITE BLOOD COUNT 7.7 K/mm3 (4.0-10.0)
[2022-04-18 11:24] LABS: BLOOD UREA NITROGEN 23.7 mg/dL (7-18); CALCIUM 8.5 mg/dL (8.5-10.1)
[2022-04-18 11:26] LABS: PHOSPHOROUS 2.9 mg/dL (2.5-4.9)
[2022-04-18 11:27] LABS: CREATININE 0.8 mg/dL (0.55-1.3)
[2022-04-18 11:28] LABS: BILIRUBIN,TOTAL 0.8 mg/dL (0.2-1); TOT PROT 5.2 g/dl (6.4-8.2)
[2022-04-18 11:32] LABS: ALBUMIN 2.5 g/dl (3.4-5.0)
[2022-04-19] MEDS: INSULIN SLIDING SCALE (NOVOLOG) 1 VIAL SQ SCH ×4 (06:02→22:15)
[2022-04-19 10:24] LABS: BASO % 0.8 % (0-2.0); EOS % 1.5 % (0-4.5); HEMATOCRIT 38.3 % (32.4-45.2); HEMOGLOBIN 12.4 GM/dL (10.7-15.3); LYMPH % 11.4 % (8-40); MCH 26.9 pg (25.7-33.7); MCHC 32.5 g/dl (32.0-36.0); MEAN CELL VOLUME 82.8 fl (80-96); MEAN PLT VOLUME 11.3 fl (7.5-11.1); NEUT % 79.3 % (42.8-82.8); PLATELET COUNT 131 10^3/uL (134-434); RBC 4.63 M/mm3 (3.60-5.2); RDW 15.3 % (11.6-15.6); WHITE BLOOD COUNT 8.9 K/mm3 (4.0-10.0)
[2022-04-19] MEDS ORDERED: BENZOCAINE 28 GM HEMORRHOIDAL OINTMENT RC PRN (10:32)
[2022-04-19] MEDS: FUROSEMIDE 40 MG TABLET (FP) PO SCH (10:34)
[2022-04-19] MEDS: ENOXAPARIN NA (PORCINE) 40 MG/0.4 ML DISP.SYRIN SQ SCH (10:34)
[2022-04-19] MEDS: SPIRONOLACTONE 25 MG TABLET PO SCH (10:34)
[2022-04-19] MEDS ORDERED: WITCH HAZEL 50% (TUCKS) 40 PAD/JAR PAD TP ONE (10:36)
[2022-04-19 10:43] LABS: CALCIUM 8.4 mg/dL (8.5-10.1)
[2022-04-19 10:44] LABS: ALBUMIN 2.6 g/dl (3.4-5.0)
[2022-04-19 10:46] LABS: CREATININE 1.1 mg/dL (0.55-1.3)
[2022-04-19 10:48] LABS: TOT PROT 5.2 g/dl (6.4-8.2)
[2022-04-19] MEDS: SACUBITRIL/VALSARTAN 24 MG-26 MG TABLET PO SCH ×2 (12:18→22:06)
[2022-04-19] MEDS: ATORVASTATIN CA 80 MG TABLET (FP) PO SCH (22:06)
[2022-04-20] MEDS: INSULIN SLIDING SCALE (NOVOLOG) 1 VIAL SQ SCH ×3 (06:23→16:51)
[2022-04-20] MEDS: ENOXAPARIN NA (PORCINE) 40 MG/0.4 ML DISP.SYRIN SQ SCH (09:00)
[2022-04-20] MEDS: SACUBITRIL/VALSARTAN 24 MG-26 MG TABLET PO SCH ×2 (09:02→22:35)
[2022-04-20] MEDS: FUROSEMIDE 40 MG TABLET (FP) PO SCH (09:02)
[2022-04-20] MEDS: SPIRONOLACTONE 25 MG TABLET PO SCH (09:02)
[2022-04-20 10:19] LABS: BASO % 0.6 % (0-2.0); HEMATOCRIT 41.9 % (32.4-45.2); HEMOGLOBIN 13.4 GM/dL (10.7-15.3); MCH 26.6 pg (25.7-33.7); MCHC 31.9 g/dl (32.0-36.0); MEAN CELL VOLUME 83.4 fl (80-96); MEAN PLT VOLUME 11.1 fl (7.5-11.1); MONO % 6.4 % (3.8-10.2); PLATELET COUNT 140 10^3/uL (134-434); RBC 5.03 M/mm3 (3.60-5.2); RDW 15.6 % (11.6-15.6); WHITE BLOOD COUNT 8.2 K/mm3 (4.0-10.0)
[2022-04-20 10:32] LABS: INR 1.13 (0.83-1.09); PROTHROMBIN TIME (PATIENT) 13.1 SEC (9.7-13.0)
[2022-04-20 10:42] LABS: ALBUMIN 2.8 g/dl (3.4-5.0); CALCIUM 8.5 mg/dL (8.5-10.1)
[2022-04-20 10:43] LABS: BLOOD UREA NITROGEN 18.3 mg/dL (7-18); MAGNESIUM 2.1 mg/dL (1.8-2.4)
[2022-04-20 10:45] LABS: CREATININE 1.1 mg/dL (0.55-1.3)
[2022-04-20 10:47] LABS: BILIRUBIN,TOTAL 0.8 mg/dL (0.2-1); TOT PROT 5.7 g/dl (6.4-8.2)
[2022-04-20] MEDS: ATORVASTATIN CA 80 MG TABLET (FP) PO SCH (22:35)
[2022-04-21] MEDS: INSULIN SLIDING SCALE (NOVOLOG) 1 VIAL SQ SCH ×5 (00:11→23:25)
[2022-04-21 09:31] LABS: BASO % 0.7 % (0-2.0); EOS % 2.1 % (0-4.5); HEMATOCRIT 40.6 % (32.4-45.2); HEMOGLOBIN 12.9 GM/dL (10.7-15.3); LYMPH % 16.3 % (8-40); MCH 26.4 pg (25.7-33.7); MCHC 31.7 g/dl (32.0-36.0); MEAN CELL VOLUME 83.1 fl (80-96); MEAN PLT VOLUME 10.8 fl (7.5-11.1); MONO % 6.6 % (3.8-10.2); NEUT % 74.3 % (42.8-82.8); PLATELET COUNT 158 10^3/uL (134-434); RBC 4.88 M/mm3 (3.60-5.2); RDW 15.6 % (11.6-15.6); WHITE BLOOD COUNT 9.1 K/mm3 (4.0-10.0)
[2022-04-21] MEDS: SACUBITRIL/VALSARTAN 24 MG-26 MG TABLET PO SCH ×2 (09:37→22:25)
[2022-04-21] MEDS: FUROSEMIDE 40 MG TABLET (FP) PO SCH (09:37)
[2022-04-21] MEDS: SPIRONOLACTONE 25 MG TABLET PO SCH (09:37)
[2022-04-21] MEDS: ENOXAPARIN NA (PORCINE) 40 MG/0.4 ML DISP.SYRIN SQ SCH (09:38)
[2022-04-21 09:52] LABS: ALBUMIN 2.8 g/dl (3.4-5.0); BLOOD UREA NITROGEN 15.6 mg/dL (7-18); CALCIUM 8.4 mg/dL (8.5-10.1)
[2022-04-21 09:57] LABS: BILIRUBIN,TOTAL 0.7 mg/dL (0.2-1); TOT PROT 5.6 g/dl (6.4-8.2)
[2022-04-21] MEDS ORDERED: LACTULOSE 20 GM/30 ML UDC (FOR ORAL USE ONLY) PO PRN (10:15)
[2022-04-21] MEDS: POTASSIUM CHLORIDE ORAL LIQUID 20 MEQ/15 ML PO SCH ×2 (14:16→22:26)
[2022-04-21] MEDS: ATORVASTATIN CA 80 MG TABLET (FP) PO SCH (22:25)
[2022-04-22] MEDS: INSULIN SLIDING SCALE (NOVOLOG) 1 VIAL SQ SCH ×4 (08:16→23:02)
[2022-04-22 09:28] LABS: BASO % 0.6 % (0-2.0); EOS % 1.3 % (0-4.5); HEMATOCRIT 35.7 % (32.4-45.2); HEMOGLOBIN 11.5 GM/dL (10.7-15.3); LYMPH % 10.8 % (8-40); MCH 26.9 pg (25.7-33.7); MCHC 32.1 g/dl (32.0-36.0); MEAN CELL VOLUME 83.8 fl (80-96); MEAN PLT VOLUME 10.5 fl (7.5-11.1); MONO % 5.7 % (3.8-10.2); NEUT % 81.6 % (42.8-82.8); PLATELET COUNT 121 10^3/uL (134-434); RBC 4.26 M/mm3 (3.60-5.2); RDW 15.7 % (11.6-15.6); WHITE BLOOD COUNT 6.7 K/mm3 (4.0-10.0)
[2022-04-22 09:56] LABS: ALBUMIN 2.6 g/dl (3.4-5.0); MAGNESIUM 1.9 mg/dL (1.8-2.4)
[2022-04-22 09:59] LABS: CREATININE 1.1 mg/dL (0.55-1.3)
[2022-04-22 10:00] LABS: BILIRUBIN,TOTAL 0.5 mg/dL (0.2-1); TOT PROT 5.3 g/dl (6.4-8.2)
[2022-04-22] MEDS: ENOXAPARIN NA (PORCINE) 40 MG/0.4 ML DISP.SYRIN SQ SCH (10:11)
[2022-04-22] MEDS: SPIRONOLACTONE 25 MG TABLET PO SCH (10:12)
[2022-04-22] MEDS: FUROSEMIDE 40 MG TABLET (FP) PO SCH (10:12)
[2022-04-22] MEDS: SACUBITRIL/VALSARTAN 24 MG-26 MG TABLET PO SCH ×2 (10:12→22:26)
[2022-04-22] MEDS: POLYETHYLENE GLYCOL (HEALTHYLAX) 3350 17 GM PACKET PO SCH ×2 (15:10→22:26)
[2022-04-22] MEDS: ATORVASTATIN CA 80 MG TABLET (FP) PO SCH (22:26)
[2022-04-23] MEDS ORDERED: INSULIN (NOVOLOG) ASPART 100 UNITS/ML 10ML VIAL ONE (06:22)
[2022-04-23] MEDS: POLYETHYLENE GLYCOL (HEALTHYLAX) 3350 17 GM PACKET PO SCH ×3 (06:27→22:56)
[2022-04-23] MEDS: INSULIN SLIDING SCALE (NOVOLOG) 1 VIAL SQ SCH ×4 (06:27→23:05)
[2022-04-23] MEDS ORDERED: POLYETHYLENE GLYCOL 3350 255 GM BTL PO ONE (09:17)
[2022-04-23 09:25] LABS: BASO % 0.4 % (0-2.0); EOS % 2.1 % (0-4.5); HEMATOCRIT 36.3 % (32.4-45.2); HEMOGLOBIN 11.5 GM/dL (10.7-15.3); MCH 26.5 pg (25.7-33.7); MCHC 31.8 g/dl (32.0-36.0); MEAN CELL VOLUME 83.3 fl (80-96); MEAN PLT VOLUME 10.3 fl (7.5-11.1); MONO % 6.7 % (3.8-10.2); NEUT % 71.8 % (42.8-82.8); PLATELET COUNT 130 10^3/uL (134-434); RBC 4.35 M/mm3 (3.60-5.2); RDW 15.8 % (11.6-15.6); WHITE BLOOD COUNT 6.4 K/mm3 (4.0-10.0)
[2022-04-23 09:38] LABS: CALCIUM 8.2 mg/dL (8.5-10.1)
[2022-04-23 09:39] LABS: ALBUMIN 2.8 g/dl (3.4-5.0); BLOOD UREA NITROGEN 15.2 mg/dL (7-18)
[2022-04-23 09:42] LABS: CREATININE 1.1 mg/dL (0.55-1.3)
[2022-04-23 09:43] LABS: BILIRUBIN,TOTAL 0.5 mg/dL (0.2-1); TOT PROT 5.4 g/dl (6.4-8.2)
[2022-04-23] MEDS: FUROSEMIDE 40 MG TABLET (FP) PO SCH (12:33)
[2022-04-23] MEDS: SACUBITRIL/VALSARTAN 24 MG-26 MG TABLET PO SCH ×2 (12:34→22:56)
[2022-04-23] MEDS: SPIRONOLACTONE 25 MG TABLET PO SCH (12:34)
[2022-04-23] MEDS: ATORVASTATIN CA 80 MG TABLET (FP) PO SCH (22:56)
[2022-04-24] MEDS: INSULIN SLIDING SCALE (NOVOLOG) 1 VIAL SQ SCH ×4 (06:33→21:10)
[2022-04-24] MEDS: POLYETHYLENE GLYCOL (HEALTHYLAX) 3350 17 GM PACKET PO SCH ×3 (06:33→21:03)
[2022-04-24 09:34] LABS: INR 1.16 (0.83-1.09); PROTHROMBIN TIME (PATIENT) 13.4 SEC (9.7-13.0)
[2022-04-24] MEDS: SACUBITRIL/VALSARTAN 24 MG-26 MG TABLET PO SCH ×3 (11:03→21:02)
[2022-04-24 14:52] VITALS: BMI 21.4
[2022-04-24] MEDS: ATORVASTATIN CA 80 MG TABLET (FP) PO SCH (21:03)
[2022-04-24 21:39] VITALS: RESP 20
[2022-04-25] MEDS: POLYETHYLENE GLYCOL (HEALTHYLAX) 3350 17 GM PACKET PO SCH ×2 (05:45→13:57)
[2022-04-25] MEDS: INSULIN SLIDING SCALE (NOVOLOG) 1 VIAL SQ SCH ×2 (06:05→11:08)
[2022-04-25] MEDS: SACUBITRIL/VALSARTAN 24 MG-26 MG TABLET PO SCH (09:57)
[2022-04-25] MEDS: SPIRONOLACTONE 25 MG TABLET PO SCH (09:57)
[2022-04-25] MEDS: FUROSEMIDE 40 MG TABLET (FP) PO SCH (09:57)
[2022-04-25] MEDS: ENOXAPARIN NA (PORCINE) 40 MG/0.4 ML DISP.SYRIN SQ SCH (10:25)
[2022-04-25] MEDS ORDERED: SACUBITRIL/VALSARTAN 24 MG-26 MG TABLET PO ONE (11:30)
[2022-04-25 11:38] VITALS: BP 155/70; PULSE 73; TEMP 97.5
[2022-04-25] MEDS ORDERED: SACUBITRIL/VALSARTAN 49 MG-51 MG TABLET PO SCH (22:00)
== END 2022-04-25 14:57 | disposition home or self-care (01) | DRG 389 ==
LOC: JER 11:22 → JERBED 16:12 → J8W 22:13
PROVIDERS: ADMIT Internal Medicine; ATTEND Nurse Practitioner Acute Care
PROC: 0D7N8ZZ Dilation of Sigmoid Colon, Via Natural or Artificial Opening Endoscopic (ICD-10-PCS; 2022-04-24)
PROC: 0DJD8ZZ Inspection of Lower Intestinal Tract, Via Natural or Artificial Opening Endoscopic (ICD-10-PCS; principal; 2022-04-24 10:30)
DX: K56.699 Other intestinal obstruction unspecified as to partial versus complete obstruction (principal); I50.42 Chronic combined systolic (congestive) and diastolic (congestive) heart failure; R18.8 Other ascites; J90 Pleural effusion, not elsewhere classified; I12.9 Hypertensive chronic kidney disease with stage 1 through stage 4 chronic kidney disease, or unspecified chronic kidney disease; E11.22 Type 2 diabetes mellitus with diabetic chronic kidney disease; E03.9 Hypothyroidism, unspecified; I11.0 Hypertensive heart disease with heart failure; N18.9 Chronic kidney disease, unspecified; K57.30 Diverticulosis of large intestine without perforation or abscess without bleeding; E78.5 Hyperlipidemia, unspecified; K21.9 Gastro-esophageal reflux disease without esophagitis; I25.119 Atherosclerotic heart disease of native coronary artery with unspecified angina pectoris; Z95.1 Presence of aortocoronary bypass graft; Z95.5 Presence of coronary angioplasty implant and graft
CPT/HCPCS: 0241U-QW; 36415; 71045-TC-FY; 74018-TC-FY; 74019-TC-FY; 74177-TC; 80053; 80061; 82962; 83036; 83605; 83735; 83993; 84100; 85025; 85027; 85610; 86850; 86900; 86901; 87045; 87046; 87324; 87449; 93005; 93010; 93306-TC; 97116-GP; 99285-25

== ENCOUNTER 2022-04-27 11:53 | Emergency (ER) | payer OTHER ==
[2022-04-27 12:45] VITALS: BP 162/64; PULSE 82; RESP 20; TEMP 97.6; BMI 22.1
[2022-04-27 15:54] LABS: HEMATOCRIT 35.8 % (32.4-45.2); HEMOGLOBIN 11.4 GM/dL (10.7-15.3); MCH 26.3 pg (25.7-33.7); MEAN CELL VOLUME 82.3 fl (80-96); MEAN PLT VOLUME 10.4 fl (7.5-11.1); PLATELET COUNT 110 10^3/uL (134-434); RBC 4.35 M/mm3 (3.60-5.2); RDW 15.6 % (11.6-15.6); WHITE BLOOD COUNT 7.9 K/mm3 (4.0-10.0)
[2022-04-27 16:26] LABS: BLOOD UREA NITROGEN 21.3 mg/dL (7-18); CALCIUM 8.7 mg/dL (8.5-10.1); MAGNESIUM 2.1 mg/dL (1.8-2.4)
[2022-04-27 16:27] LABS: ALBUMIN 3.1 g/dl (3.4-5.0)
[2022-04-27 16:29] LABS: CREATININE 1.1 mg/dL (0.55-1.3); PHOSPHOROUS 1.9 mg/dL (2.5-4.9)
[2022-04-27 16:30] LABS: BILIRUBIN,TOTAL 0.6 mg/dL (0.2-1); TOT PROT 6.1 g/dl (6.4-8.2)
[2022-04-27 16:34] LABS: EPI CELLS >36 /uL (0-25.1); HYALINE CASTS 0 /uL (0-3.1); URINE APPEARANCE CLEAR; URINE BACTERIA 1527 /uL (0-1359); URINE BILIRUBIN NEGATIVE (NEGATIVE); URINE COLOR YELLOW; URINE GLUCOSE (UA) NEGATIVE (NEGATIVE); URINE KETONE NEGATIVE (NEGATIVE); URINE LEUK ESTERASE 1+ (NEGATIVE); URINE NITRITE NEGATIVE (NEGATIVE); URINE PROTEIN 3+ (NEGATIVE); URINE RBC 39 /uL (0-23.9); URINE UROBILINOGEN 0.2 mg/dL (0.2-1.0); URINE WBC 304 /uL (0-25.8)
[2022-04-27 16:39] LABS: ANISOCYTOSIS 0; HELMET CELLS 0; HOWELL-JOLLY BODIES 0; MACROCYTOSIS 0; OVALOCYTE 0; ROULEAU 0; SICKELED CELLS 0; TARGET CELLS 0; TEAR DROP CELLS 0; TOXIC GRANULATION 0
== END 2022-04-27 19:55 | disposition left against medical advice (07) ==
LOC: JER 11:53
DX: R42 Dizziness and giddiness (principal); W19.XXXA Unspecified fall, initial encounter
CPT/HCPCS: 36415; 70450-TC; 72125-TC; 80053; 81003; 82962; 83735; 84100; 84484; 85025; 87086; 93005; 93010; 99285-25

== ENCOUNTER 2023-02-26 09:54 | Inpatient (IN) | payer OTHER ==
[2023-02-26 11:48] LABS: BASO % 1.1 % (0-2.0); EOS % 2.2 % (0-4.5); HEMATOCRIT 41.2 % (32.4-45.2); HEMOGLOBIN 12.4 GM/dL (10.7-15.3); LYMPH % 5.9 % (8-40); MCHC 30.2 g/dl (32.0-36.0); MEAN CELL VOLUME 76.2 fl (80-96); MEAN PLT VOLUME 8.9 fl (7.5-11.1); MONO % 5.8 % (3.8-10.2); PLATELET COUNT 193 10^3/uL (134-434); RBC 5.41 M/mm3 (3.60-5.2); RDW 19.2 % (11.6-15.6); WHITE BLOOD COUNT 8.4 K/mm3 (4.0-10.0)
[2023-02-26 12:00] LABS: POTASSIUM 5.3 mmol/L (3.5-5.1)
[2023-02-26 12:06] LABS: CALCIUM 8.6 mg/dL (8.5-10.1)
[2023-02-26 12:07] LABS: ALBUMIN 2.6 g/dl (3.4-5.0); BLOOD UREA NITROGEN 35.8 mg/dL (7-18)
[2023-02-26 12:10] LABS: CREATININE 1.1 mg/dL (0.55-1.3)
[2023-02-26 12:11] LABS: BILIRUBIN,TOTAL 0.8 mg/dL (0.2-1); TOT PROT 6.2 g/dl (6.4-8.2)
[2023-02-26] MEDS ORDERED: CLINDAMYCIN 600MG PREMIX IVPB 600 MG/50 ML BAG IVPB ONE ×2 (13:40→14:22)
[2023-02-26] MEDS ORDERED: FUROSEMIDE 40 MG/4 ML INJECTABLE VIAL IVPUSH ONE (13:40)
[2023-02-26] MEDS ORDERED: FUROSEMIDE 40 MG/4 ML INJECTABLE VIAL ONE (14:22)
[2023-02-26] MEDS ORDERED: ACETAMINOPHEN 325 MG TABLET (FP) PO PRN (15:13)
[2023-02-26] MEDS ORDERED: VANCOMYCIN 1 GRAM (PRE-DOCKED) 1,000 MG/250 ML BAG IVPB ONE ×2 (15:22→16:56)
[2023-02-26] MEDS ORDERED: ALBUTEROL SO4 HFA INHALER IH PRN (15:24)
[2023-02-26] MEDS: INSULIN ASPART SLIDING SCALE (NOVOLOG) 1 VIAL SQ SCH ×2 (17:51→21:39)
[2023-02-26] MEDS: BUMETANIDE INJECTION 1 MG/4 ML VIAL IVPUSH SCH (17:51)
[2023-02-26 17:53] LABS: EPI CELLS 20 /uL (0-25.1); HYALINE CASTS 0 /uL (0-3.1); PH,URINE 5.5 (5.0-8.0); URINE APPEARANCE CLEAR; URINE BACTERIA 191 /uL (0-1359); URINE BILIRUBIN NEGATIVE (NEGATIVE); URINE COLOR YELLOW; URINE GLUCOSE (UA) NEGATIVE (NEGATIVE); URINE KETONE NEGATIVE (NEGATIVE); URINE LEUK ESTERASE NEGATIVE (NEGATIVE); URINE NITRITE NEGATIVE (NEGATIVE); URINE PROTEIN 3+ (NEGATIVE); URINE RBC 12 /uL (0-23.9); URINE WBC 8 /uL (0-25.8)
[2023-02-26 18:05] LABS: MAGNESIUM 2.2 mg/dL (1.8-2.4)
[2023-02-26] MEDS: CARVEDILOL 12.5 MG TABLET (FP) PO SCH (21:39)
[2023-02-26] MEDS: ATORVASTATIN CA 80 MG TABLET (FP) PO SCH (21:39)
[2023-02-26] MEDS: SACUBITRIL/VALSARTAN 49 MG-51 MG TABLET PO SCH (23:56)
[2023-02-27] MEDS: INSULIN ASPART SLIDING SCALE (NOVOLOG) 1 VIAL SQ SCH ×4 (06:09→23:16)
[2023-02-27] MEDS: BUMETANIDE INJECTION 1 MG/4 ML VIAL IVPUSH SCH ×2 (07:06→13:17)
[2023-02-27 07:28] LABS: EOS % 3.2 % (0-4.5); HEMATOCRIT 36.8 % (32.4-45.2); LYMPH % 7.9 % (8-40); MCH 22.9 pg (25.7-33.7); MCHC 29.8 g/dl (32.0-36.0); MEAN CELL VOLUME 76.6 fl (80-96); MEAN PLT VOLUME 10.1 fl (7.5-11.1); MONO % 8.2 % (3.8-10.2); NEUT % 79.7 % (42.8-82.8); PLATELET COUNT 165 10^3/uL (134-434); WHITE BLOOD COUNT 6.6 K/mm3 (4.0-10.0)
[2023-02-27 07:41] LABS: CALCIUM 8.2 mg/dL (8.5-10.1)
[2023-02-27 07:42] LABS: BLOOD UREA NITROGEN 36.6 mg/dL (7-18); MAGNESIUM 1.8 mg/dL (1.8-2.4)
[2023-02-27 07:45] LABS: CREATININE 1.2 mg/dL (0.55-1.3)
[2023-02-27 07:46] LABS: TOT PROT 4.6 g/dl (6.4-8.2)
[2023-02-27 07:47] LABS: BILIRUBIN,TOTAL 0.6 mg/dL (0.2-1)
[2023-02-27] MEDS: ENOXAPARIN NA (PORCINE) 40 MG/0.4 ML DISP.SYRIN SQ SCH (09:24)
[2023-02-27] MEDS: CARVEDILOL 12.5 MG TABLET (FP) PO SCH ×2 (09:25→23:15)
[2023-02-27] MEDS: ASPIRIN COATED 81 MG TABLET.EC PO SCH (09:25)
[2023-02-27] MEDS: SACUBITRIL/VALSARTAN 49 MG-51 MG TABLET PO SCH ×2 (09:25→23:33)
[2023-02-27] MEDS ORDERED: VANCOMYCIN 1,000 MG in DEXTROSE 5%-WATER - 250 ML IVPB SCH (10:00)
[2023-02-27] MEDS ORDERED: VANCOMYCIN/WATER FOR INJ (PEG) 1,000 MG/200 ML BAG IVPB ONE (10:00)
[2023-02-27 11:07] LABS: N-TERMINAL BNP 15824.8 pg/ml (5-450)
[2023-02-27] MEDS: SILVER SULFADIAZINE 1% TOP CREAM 50 GM JAR TP SCH (23:15)
[2023-02-27] MEDS: ATORVASTATIN CA 80 MG TABLET (FP) PO SCH (23:15)
[2023-02-27] MEDS: VANCOMYCIN/WATER FOR INJ (PEG) 1,000 MG/200 ML BAG IVPB SCH (23:15)
[2023-02-28] MEDS ORDERED: FUROSEMIDE 40 MG/4 ML INJECTABLE VIAL ONE (03:42)
[2023-02-28] MEDS: FUROSEMIDE 40 MG/4 ML INJECTABLE VIAL IVPUSH SCH ×2 (06:16→16:32)
[2023-02-28] MEDS: INSULIN ASPART SLIDING SCALE (NOVOLOG) 1 VIAL SQ SCH ×4 (06:16→22:03)
[2023-02-28] MEDS: VANCOMYCIN/WATER FOR INJ (PEG) 1,000 MG/200 ML BAG IVPB SCH ×2 (10:57→21:55)
[2023-02-28] MEDS: ENOXAPARIN NA (PORCINE) 40 MG/0.4 ML DISP.SYRIN SQ SCH (10:58)
[2023-02-28] MEDS: ASPIRIN COATED 81 MG TABLET.EC PO SCH (10:58)
[2023-02-28] MEDS: SACUBITRIL/VALSARTAN 49 MG-51 MG TABLET PO SCH ×2 (10:58→21:55)
[2023-02-28] MEDS: SILVER SULFADIAZINE 1% TOP CREAM 50 GM JAR TP SCH (10:58)
[2023-02-28] MEDS: CARVEDILOL 12.5 MG TABLET (FP) PO SCH ×2 (10:58→21:58)
[2023-02-28] MEDS: ATORVASTATIN CA 80 MG TABLET (FP) PO SCH (21:56)
[2023-03-01] MEDS: FUROSEMIDE 40 MG/4 ML INJECTABLE VIAL IVPUSH SCH ×2 (05:56→16:27)
[2023-03-01] MEDS: INSULIN ASPART SLIDING SCALE (NOVOLOG) 1 VIAL SQ SCH ×4 (06:15→21:04)
[2023-03-01 08:04] LABS: POTASSIUM 5.3 mmol/L (3.5-5.1)
[2023-03-01 08:09] LABS: BLOOD UREA NITROGEN 55.6 mg/dL (7-18); CALCIUM 8.9 mg/dL (8.5-10.1)
[2023-03-01 08:10] LABS: ALBUMIN 2.2 g/dl (3.4-5.0)
[2023-03-01 08:11] LABS: BILIRUBIN,TOTAL 0.5 mg/dL (0.2-1)
[2023-03-01 08:13] LABS: CREATININE 1.6 mg/dL (0.55-1.3); PHOSPHOROUS 4.6 mg/dL (2.5-4.9)
[2023-03-01] MEDS: VANCOMYCIN/WATER FOR INJ (PEG) 1,000 MG/200 ML BAG IVPB SCH ×3 (11:10→22:26)
[2023-03-01] MEDS: ENOXAPARIN NA (PORCINE) 40 MG/0.4 ML DISP.SYRIN SQ SCH (11:10)
[2023-03-01] MEDS: ASPIRIN COATED 81 MG TABLET.EC PO SCH (11:10)
[2023-03-01] MEDS: CARVEDILOL 12.5 MG TABLET (FP) PO SCH ×2 (11:10→21:03)
[2023-03-01] MEDS: SILVER SULFADIAZINE 1% TOP CREAM 50 GM JAR TP SCH (11:11)
[2023-03-01] MEDS: SACUBITRIL/VALSARTAN 49 MG-51 MG TABLET PO SCH ×2 (12:40→21:03)
[2023-03-01] MEDS: ATORVASTATIN CA 80 MG TABLET (FP) PO SCH (21:03)
[2023-03-02] MEDS: INSULIN ASPART SLIDING SCALE (NOVOLOG) 1 VIAL SQ SCH ×4 (06:01→21:14)
[2023-03-02 08:03] LABS: HEMATOCRIT 36.5 % (32.4-45.2); HEMOGLOBIN 10.7 GM/dL (10.7-15.3); MCH 22.9 pg (25.7-33.7); MCHC 29.2 g/dl (32.0-36.0); MEAN CELL VOLUME 78.5 fl (80-96); MEAN PLT VOLUME 10.1 fl (7.5-11.1); PLATELET COUNT 155 10^3/uL (134-434); RBC 4.65 M/mm3 (3.60-5.2); RDW 19.5 % (11.6-15.6); WHITE BLOOD COUNT 6.6 K/mm3 (4.0-10.0)
[2023-03-02 08:32] LABS: POTASSIUM 5.2 mmol/L (3.5-5.1)
[2023-03-02 08:38] LABS: CALCIUM 8.6 mg/dL (8.5-10.1); MAGNESIUM 1.9 mg/dL (1.8-2.4)
[2023-03-02 08:39] LABS: BLOOD UREA NITROGEN 61.4 mg/dL (7-18)
[2023-03-02 08:42] LABS: CREATININE 1.6 mg/dL (0.55-1.3); PHOSPHOROUS 5.1 mg/dL (2.5-4.9)
[2023-03-02 08:43] LABS: ALBUMIN 2.1 g/dl (3.4-5.0); BILIRUBIN,TOTAL 0.7 mg/dL (0.2-1); TOT PROT 4.8 g/dl (6.4-8.2)
[2023-03-02] MEDS: SACUBITRIL/VALSARTAN 49 MG-51 MG TABLET PO SCH (09:05)
[2023-03-02] MEDS: CARVEDILOL 12.5 MG TABLET (FP) PO SCH ×2 (09:05→21:14)
[2023-03-02] MEDS: FUROSEMIDE 40 MG TABLET (FP) PO SCH (09:05)
[2023-03-02] MEDS: ASPIRIN COATED 81 MG TABLET.EC PO SCH (09:05)
[2023-03-02] MEDS: ENOXAPARIN NA (PORCINE) 40 MG/0.4 ML DISP.SYRIN SQ SCH (09:05)
[2023-03-02] MEDS: VANCOMYCIN/WATER FOR INJ (PEG) 1,000 MG/200 ML BAG IVPB SCH (10:39)
[2023-03-02 12:35] VITALS: BMI 26.9
[2023-03-02] MEDS: SILVER SULFADIAZINE 1% TOP CREAM 50 GM JAR TP SCH (12:52)
[2023-03-02] MEDS ORDERED: INSULIN ASPART SLIDING SCALE (NOVOLOG) 1 VIAL SQ ONE (21:09)
[2023-03-02] MEDS: ATORVASTATIN CA 80 MG TABLET (FP) PO SCH (21:14)
[2023-03-02] MEDS: POLYETHYLENE GLYCOL (HEALTHYLAX) 3350 17 GM PACKET PO SCH (21:14)
[2023-03-03] MEDS: INSULIN ASPART SLIDING SCALE (NOVOLOG) 1 VIAL SQ SCH ×4 (06:05→21:33)
[2023-03-03] MEDS: FUROSEMIDE 40 MG TABLET (FP) PO SCH (09:22)
[2023-03-03] MEDS: POLYETHYLENE GLYCOL (HEALTHYLAX) 3350 17 GM PACKET PO SCH ×2 (09:22→21:32)
[2023-03-03] MEDS: ASPIRIN COATED 81 MG TABLET.EC PO SCH (09:22)
[2023-03-03] MEDS: CARVEDILOL 12.5 MG TABLET (FP) PO SCH ×2 (09:22→21:33)
[2023-03-03] MEDS: SILVER SULFADIAZINE 1% TOP CREAM 50 GM JAR TP SCH (09:22)
[2023-03-03] MEDS: ENOXAPARIN NA (PORCINE) 40 MG/0.4 ML DISP.SYRIN SQ SCH (09:22)
[2023-03-03 10:08] LABS: POTASSIUM 5.3 mmol/L (3.5-5.1)
[2023-03-03 10:11] LABS: CALCIUM 8.6 mg/dL (8.5-10.1)
[2023-03-03 10:12] LABS: ALBUMIN 2.3 g/dl (3.4-5.0); BLOOD UREA NITROGEN 68.9 mg/dL (7-18); MAGNESIUM 2.1 mg/dL (1.8-2.4)
[2023-03-03 10:15] LABS: CREATININE 1.7 mg/dL (0.55-1.3); PHOSPHOROUS 4.6 mg/dL (2.5-4.9)
[2023-03-03 10:16] LABS: BILIRUBIN,TOTAL 0.5 mg/dL (0.2-1); TOT PROT 5.5 g/dl (6.4-8.2)
[2023-03-03 10:28] LABS: HEMATOCRIT 35.9 % (32.4-45.2); HEMOGLOBIN 10.6 GM/dL (10.7-15.3); MCH 22.8 pg (25.7-33.7); MCHC 29.4 g/dl (32.0-36.0); MEAN CELL VOLUME 77.7 fl (80-96); MEAN PLT VOLUME 9.4 fl (7.5-11.1); PLATELET COUNT 153 10^3/uL (134-434); RBC 4.62 M/mm3 (3.60-5.2); RDW 19.3 % (11.6-15.6); WHITE BLOOD COUNT 6.1 K/mm3 (4.0-10.0)
[2023-03-03] MEDS: CLINDAMYCIN HCL 150 MG CAPSULE (FP) PO SCH ×2 (13:10→21:32)
[2023-03-03] MEDS: SODIUM ZIRCONIUM CYCLOSILICATE (LOKELMA) 5 GM PACKET PO SCH (13:10)
[2023-03-03] MEDS ORDERED: FUROSEMIDE 20 MG TABLET (FP) PO SCH (14:36)
[2023-03-03] MEDS: ATORVASTATIN CA 80 MG TABLET (FP) PO SCH (21:32)
[2023-03-04] MEDS: CLINDAMYCIN HCL 150 MG CAPSULE (FP) PO SCH ×3 (06:06→21:19)
[2023-03-04] MEDS: INSULIN ASPART SLIDING SCALE (NOVOLOG) 1 VIAL SQ SCH ×5 (06:37→21:20)
[2023-03-04 07:11] LABS: INR 1.28 (0.83-1.09); PROTHROMBIN TIME (PATIENT) 14.8 SEC (9.7-13.0)
[2023-03-04 07:12] LABS: BASO % 0.9 % (0-2.0); EOS % 4.7 % (0-4.5); HEMOGLOBIN 10.5 GM/dL (10.7-15.3); LYMPH % 12.5 % (8-40); MCH 23.2 pg (25.7-33.7); MEAN CELL VOLUME 77.4 fl (80-96); MEAN PLT VOLUME 9.4 fl (7.5-11.1); MONO % 8.3 % (3.8-10.2); NEUT % 73.6 % (42.8-82.8); PLATELET COUNT 139 10^3/uL (134-434); RBC 4.51 M/mm3 (3.60-5.2); RDW 19.1 % (11.6-15.6); WHITE BLOOD COUNT 5.6 K/mm3 (4.0-10.0)
[2023-03-04 07:32] LABS: POTASSIUM 4.4 mmol/L (3.5-5.1)
[2023-03-04 07:49] LABS: CALCIUM 8.5 mg/dL (8.5-10.1)
[2023-03-04 07:50] LABS: BLOOD UREA NITROGEN 74.6 mg/dL (7-18)
[2023-03-04 07:53] LABS: CREATININE 1.6 mg/dL (0.55-1.3)
[2023-03-04] MEDS ORDERED: FENTANYL CITRATE/PF 50 MCG/ML VIAL ONE (09:13)
[2023-03-04] MEDS ORDERED: MIDAZOLAM HCL 2 MG/2 ML SINGLE DOSE VIAL ONE (09:13)
[2023-03-04] MEDS ORDERED: ETOMIDATE 20 MG/10 ML VIAL IVPUSH ONE (09:14)
[2023-03-04] MEDS: ASPIRIN COATED 81 MG TABLET.EC PO SCH (11:11)
[2023-03-04] MEDS: CARVEDILOL 12.5 MG TABLET (FP) PO SCH ×2 (11:11→21:19)
[2023-03-04] MEDS: SODIUM ZIRCONIUM CYCLOSILICATE (LOKELMA) 5 GM PACKET PO SCH (11:11)
[2023-03-04] MEDS: POLYETHYLENE GLYCOL (HEALTHYLAX) 3350 17 GM PACKET PO SCH ×2 (11:12→21:20)
[2023-03-04] MEDS: SILVER SULFADIAZINE 1% TOP CREAM 50 GM JAR TP SCH (11:12)
[2023-03-04] MEDS: ATORVASTATIN CA 80 MG TABLET (FP) PO SCH (21:19)
[2023-03-04 22:44] LABS: EPI CELLS 6 /uL (0-25.1); HYALINE CASTS 3 /uL (0-3.1); URINE APPEARANCE CLEAR; URINE BACTERIA 3 /uL (0-1359); URINE BILIRUBIN NEGATIVE (NEGATIVE); URINE COLOR YELLOW; URINE GLUCOSE (UA) NEGATIVE (NEGATIVE); URINE KETONE NEGATIVE (NEGATIVE); URINE LEUK ESTERASE NEGATIVE (NEGATIVE); URINE NITRITE NEGATIVE (NEGATIVE); URINE PROTEIN 1+ (NEGATIVE); URINE RBC 14 /uL (0-23.9); URINE UROBILINOGEN 0.2 mg/dL (0.2-1.0); URINE WBC 3 /uL (0-25.8)
[2023-03-05] MEDS: ACETAMINOPHEN 1000 MG/100 ML BAG IVPB PRN ×2 (00:38→15:07)
[2023-03-05] MEDS: MELATONIN 1 MG TABLET PO PRN (00:38)
[2023-03-05] MEDS: INSULIN ASPART SLIDING SCALE (NOVOLOG) 1 VIAL SQ SCH ×4 (06:18→21:29)
[2023-03-05] MEDS: CLINDAMYCIN HCL 150 MG CAPSULE (FP) PO SCH ×3 (06:18→21:14)
[2023-03-05 08:06] LABS: HEMATOCRIT 37.1 % (32.4-45.2); MCH 23.1 pg (25.7-33.7); MCHC 29.8 g/dl (32.0-36.0); MEAN CELL VOLUME 77.5 fl (80-96); PLATELET COUNT 132 10^3/uL (134-434); RBC 4.78 M/mm3 (3.60-5.2); RDW 19.4 % (11.6-15.6); WHITE BLOOD COUNT 11.4 K/mm3 (4.0-10.0)
[2023-03-05 08:32] LABS: POTASSIUM 5.5 mmol/L (3.5-5.1)
[2023-03-05 08:34] LABS: ALBUMIN 2.3 g/dl (3.4-5.0); BLOOD UREA NITROGEN 81.3 mg/dL (7-18); CALCIUM 8.6 mg/dL (8.5-10.1); MAGNESIUM 2.2 mg/dL (1.8-2.4)
[2023-03-05 08:37] LABS: CREATININE 1.7 mg/dL (0.55-1.3)
[2023-03-05 08:39] LABS: BILIRUBIN,TOTAL 0.5 mg/dL (0.2-1); TOT PROT 5.2 g/dl (6.4-8.2)
[2023-03-05 09:06] LABS: PHOSPHOROUS 4.3 mg/dL (2.5-4.9)
[2023-03-05] MEDS ORDERED: SODIUM ZIRCONIUM CYCLOSILICATE (LOKELMA) 5 GM PACKET PO ONE (09:59)
[2023-03-05] MEDS ORDERED: SODIUM ZIRCONIUM CYCLOSILICATE (LOKELMA) 5 GM PACKET PO SCH (10:00)
[2023-03-05] MEDS: ENOXAPARIN NA (PORCINE) 40 MG/0.4 ML DISP.SYRIN SQ SCH (10:34)
[2023-03-05] MEDS: ASPIRIN COATED 81 MG TABLET.EC PO SCH (10:34)
[2023-03-05] MEDS: POLYETHYLENE GLYCOL (HEALTHYLAX) 3350 17 GM PACKET PO SCH ×2 (10:34→21:14)
[2023-03-05] MEDS: CARVEDILOL 12.5 MG TABLET (FP) PO SCH ×2 (10:34→21:14)
[2023-03-05] MEDS: SILVER SULFADIAZINE 1% TOP CREAM 50 GM JAR TP SCH (10:35)
[2023-03-05 12:08] LABS: ALBUMIN 2.4 g/dl (3.4-5.0)
[2023-03-05 12:11] LABS: BILIRUBIN,DIRECT 0.3 mg/dL (0.0-0.2)
[2023-03-05 12:13] LABS: TOT PROT 5.4 g/dl (6.4-8.2)
[2023-03-05 12:17] LABS: BILIRUBIN,TOTAL 0.6 mg/dL (0.2-1)
[2023-03-05] MEDS: ATORVASTATIN CA 80 MG TABLET (FP) PO SCH (21:13)
[2023-03-05] MEDS ORDERED: INSULIN ASPART SLIDING SCALE (NOVOLOG) 1 VIAL SQ ONE (21:28)
[2023-03-06] MEDS: CLINDAMYCIN HCL 150 MG CAPSULE (FP) PO SCH ×3 (05:24→21:23)
[2023-03-06] MEDS: INSULIN ASPART SLIDING SCALE (NOVOLOG) 1 VIAL SQ SCH ×4 (06:23→21:24)
[2023-03-06 08:39] LABS: POTASSIUM 4.6 mmol/L (3.5-5.1)
[2023-03-06 08:42] LABS: ALBUMIN 2.3 g/dl (3.4-5.0); BLOOD UREA NITROGEN 81.6 mg/dL (7-18); CALCIUM 8.4 mg/dL (8.5-10.1)
[2023-03-06 08:43] LABS: HEMATOCRIT 35.1 % (32.4-45.2); HEMOGLOBIN 10.5 GM/dL (10.7-15.3); MCH 23.1 pg (25.7-33.7); MCHC 29.9 g/dl (32.0-36.0); MEAN CELL VOLUME 77.2 fl (80-96); PLATELET COUNT 118 10^3/uL (134-434); RBC 4.54 M/mm3 (3.60-5.2); RDW 19.9 % (11.6-15.6); WHITE BLOOD COUNT 10.3 K/mm3 (4.0-10.0)
[2023-03-06 08:45] LABS: CREATININE 1.7 mg/dL (0.55-1.3)
[2023-03-06 08:47] LABS: BILIRUBIN,TOTAL 0.6 mg/dL (0.2-1); TOT PROT 5.3 g/dl (6.4-8.2)
[2023-03-06] MEDS: SODIUM ZIRCONIUM CYCLOSILICATE (LOKELMA) 5 GM PACKET PO SCH (09:45)
[2023-03-06] MEDS: POLYETHYLENE GLYCOL (HEALTHYLAX) 3350 17 GM PACKET PO SCH ×2 (09:45→21:23)
[2023-03-06] MEDS: CARVEDILOL 12.5 MG TABLET (FP) PO SCH ×2 (09:46→21:23)
[2023-03-06] MEDS: ASPIRIN COATED 81 MG TABLET.EC PO SCH (09:46)
[2023-03-06] MEDS: ENOXAPARIN NA (PORCINE) 40 MG/0.4 ML DISP.SYRIN SQ SCH (09:46)
[2023-03-06] MEDS: FUROSEMIDE 40 MG TABLET (FP) PO SCH (09:46)
[2023-03-06] MEDS ORDERED: INSULIN ASPART SLIDING SCALE (NOVOLOG) 1 VIAL SQ ONE (12:37)
[2023-03-06] MEDS: SILVER SULFADIAZINE 1% TOP CREAM 50 GM JAR TP SCH (17:23)
[2023-03-06] MEDS: HEPARIN NA (PORCINE) 5,000 UNITS/ML 1ML VIAL SQ SCH (21:23)
[2023-03-06] MEDS: ATORVASTATIN CA 80 MG TABLET (FP) PO SCH (21:24)
[2023-03-07] MEDS: HEPARIN NA (PORCINE) 5,000 UNITS/ML 1ML VIAL SQ SCH ×3 (05:41→21:11)
[2023-03-07] MEDS: CLINDAMYCIN HCL 150 MG CAPSULE (FP) PO SCH ×3 (05:41→21:11)
[2023-03-07] MEDS: INSULIN ASPART SLIDING SCALE (NOVOLOG) 1 VIAL SQ SCH ×4 (06:11→22:45)
[2023-03-07 07:37] LABS: HEMATOCRIT 33.3 % (32.4-45.2); HEMOGLOBIN 10.1 GM/dL (10.7-15.3); MCH 23.3 pg (25.7-33.7); MCHC 30.3 g/dl (32.0-36.0); MEAN CELL VOLUME 76.9 fl (80-96); MEAN PLT VOLUME 10.6 fl (7.5-11.1); PLATELET COUNT 123 10^3/uL (134-434); RBC 4.33 M/mm3 (3.60-5.2); RDW 19.7 % (11.6-15.6); WHITE BLOOD COUNT 10.9 K/mm3 (4.0-10.0)
[2023-03-07 07:48] LABS: POTASSIUM 4.6 mmol/L (3.5-5.1)
[2023-03-07 07:59] LABS: BLOOD UREA NITROGEN 82.6 mg/dL (7-18); CALCIUM 8.6 mg/dL (8.5-10.1)
[2023-03-07 08:00] LABS: ALBUMIN 2.2 g/dl (3.4-5.0)
[2023-03-07 08:02] LABS: CREATININE 1.5 mg/dL (0.55-1.3)
[2023-03-07 08:16] LABS: BILIRUBIN,TOTAL 1.1 mg/dL (0.2-1)
[2023-03-07] MEDS: CARVEDILOL 12.5 MG TABLET (FP) PO SCH ×2 (09:58→21:11)
[2023-03-07] MEDS: FUROSEMIDE 40 MG TABLET (FP) PO SCH (09:59)
[2023-03-07] MEDS: POLYETHYLENE GLYCOL (HEALTHYLAX) 3350 17 GM PACKET PO SCH ×2 (09:59→21:11)
[2023-03-07] MEDS: ASPIRIN COATED 81 MG TABLET.EC PO SCH (09:59)
[2023-03-07] MEDS: SODIUM ZIRCONIUM CYCLOSILICATE (LOKELMA) 5 GM PACKET PO SCH (10:00)
[2023-03-07] MEDS: SILVER SULFADIAZINE 1% TOP CREAM 50 GM JAR TP SCH (10:01)
[2023-03-07] MEDS: ATORVASTATIN CA 80 MG TABLET (FP) PO SCH (21:11)
[2023-03-08] MEDS: CLINDAMYCIN HCL 150 MG CAPSULE (FP) PO SCH ×3 (05:06→21:18)
[2023-03-08] MEDS: HEPARIN NA (PORCINE) 5,000 UNITS/ML 1ML VIAL SQ SCH ×3 (05:07→21:18)
[2023-03-08] MEDS: INSULIN ASPART SLIDING SCALE (NOVOLOG) 1 VIAL SQ SCH ×4 (06:23→21:19)
[2023-03-08 08:58] LABS: BASO % 0.9 % (0-2.0); EOS % 3.5 % (0-4.5); HEMATOCRIT 32.6 % (32.4-45.2); HEMOGLOBIN 9.8 GM/dL (10.7-15.3); MEAN CELL VOLUME 76.7 fl (80-96); MEAN PLT VOLUME 10.7 fl (7.5-11.1); MONO % 7.7 % (3.8-10.2); NEUT % 80.9 % (42.8-82.8); PLATELET COUNT 121 10^3/uL (134-434); RBC 4.25 M/mm3 (3.60-5.2); WHITE BLOOD COUNT 9.5 K/mm3 (4.0-10.0)
[2023-03-08 09:02] LABS: INR 1.22 (0.83-1.09); PROTHROMBIN TIME (PATIENT) 14.1 SEC (9.7-13.0)
[2023-03-08] MEDS: CARVEDILOL 12.5 MG TABLET (FP) PO SCH ×2 (09:25→21:18)
[2023-03-08] MEDS: POLYETHYLENE GLYCOL (HEALTHYLAX) 3350 17 GM PACKET PO SCH ×2 (09:25→21:19)
[2023-03-08] MEDS: FUROSEMIDE 40 MG TABLET (FP) PO SCH (09:25)
[2023-03-08] MEDS: ASPIRIN COATED 81 MG TABLET.EC PO SCH (09:25)
[2023-03-08] MEDS: SODIUM ZIRCONIUM CYCLOSILICATE (LOKELMA) 5 GM PACKET PO SCH (09:25)
[2023-03-08 09:32] LABS: ALBUMIN 2.1 g/dl (3.4-5.0); BILIRUBIN,DIRECT 0.2 mg/dL (0.0-0.2); BILIRUBIN,TOTAL 0.4 mg/dL (0.2-1); BLOOD UREA NITROGEN 83.5 mg/dL (7-18); CALCIUM 8.3 mg/dL (8.5-10.1); CREATININE 1.5 mg/dL (0.55-1.3); MAGNESIUM 2.5 mg/dL (1.8-2.4); PHOSPHOROUS 3.9 mg/dL (2.5-4.9); POTASSIUM 4.6 mmol/L (3.5-5.1)
[2023-03-08] MEDS: SILVER SULFADIAZINE 1% TOP CREAM 50 GM JAR TP SCH (12:05)
[2023-03-08] MEDS ORDERED: INSULIN ASPART SLIDING SCALE (NOVOLOG) 1 VIAL SQ ONE (21:00)
[2023-03-08] MEDS: ATORVASTATIN CA 80 MG TABLET (FP) PO SCH (21:19)
[2023-03-09] MEDS: CLINDAMYCIN HCL 150 MG CAPSULE (FP) PO SCH ×3 (05:18→21:19)
[2023-03-09] MEDS: HEPARIN NA (PORCINE) 5,000 UNITS/ML 1ML VIAL SQ SCH ×3 (05:18→21:21)
[2023-03-09] MEDS: INSULIN ASPART SLIDING SCALE (NOVOLOG) 1 VIAL SQ SCH ×4 (06:14→21:21)
[2023-03-09 07:48] LABS: BASO % 1.5 % (0-2.0); EOS % 4.3 % (0-4.5); HEMATOCRIT 34.5 % (32.4-45.2); HEMOGLOBIN 10.2 GM/dL (10.7-15.3); LYMPH % 10.3 % (8-40); MCH 22.9 pg (25.7-33.7); MCHC 29.5 g/dl (32.0-36.0); MEAN CELL VOLUME 77.7 fl (80-96); MEAN PLT VOLUME 10.3 fl (7.5-11.1); MONO % 7.3 % (3.8-10.2); NEUT % 76.6 % (42.8-82.8); PLATELET COUNT 126 10^3/uL (134-434); RBC 4.44 M/mm3 (3.60-5.2); RDW 20.3 % (11.6-15.6); WHITE BLOOD COUNT 7.7 K/mm3 (4.0-10.0)
[2023-03-09 08:21] LABS: POTASSIUM 4.7 mmol/L (3.5-5.1)
[2023-03-09 08:23] LABS: CALCIUM 8.7 mg/dL (8.5-10.1)
[2023-03-09 08:24] LABS: ALBUMIN 2.1 g/dl (3.4-5.0); BLOOD UREA NITROGEN 81.8 mg/dL (7-18); MAGNESIUM 2.4 mg/dL (1.8-2.4)
[2023-03-09 08:27] LABS: CREATININE 1.4 mg/dL (0.55-1.3); PHOSPHOROUS 4.2 mg/dL (2.5-4.9)
[2023-03-09 08:28] LABS: BILIRUBIN,TOTAL 0.4 mg/dL (0.2-1); TOT PROT 5.1 g/dl (6.4-8.2)
[2023-03-09 09:01] LABS: URINE APPEARANCE CLOUDY; URINE COLOR YELLOW; URINE GLUCOSE (UA) NEGATIVE (NEGATIVE)
[2023-03-09 09:02] LABS: EPI CELLS FEW /uL (0-25.1); URINE BACTERIA 1+ /uL (0-1359); URINE BILIRUBIN NEGATIVE (NEGATIVE); URINE KETONE NEGATIVE (NEGATIVE); URINE LEUK ESTERASE TRACE (NEGATIVE); URINE NITRITE NEGATIVE (NEGATIVE); URINE PROTEIN 1+ (NEGATIVE); URINE RBC 100-200 /uL (0-23.9); URINE UROBILINOGEN 0.2 mg/dL (0.2-1.0)
[2023-03-09] MEDS: SILVER SULFADIAZINE 1% TOP CREAM 50 GM JAR TP SCH (09:15)
[2023-03-09] MEDS: FUROSEMIDE 40 MG TABLET (FP) PO SCH (09:15)
[2023-03-09] MEDS: SODIUM ZIRCONIUM CYCLOSILICATE (LOKELMA) 5 GM PACKET PO SCH (09:15)
[2023-03-09] MEDS: POLYETHYLENE GLYCOL (HEALTHYLAX) 3350 17 GM PACKET PO SCH ×2 (09:15→21:20)
[2023-03-09] MEDS: ASPIRIN COATED 81 MG TABLET.EC PO SCH (09:15)
[2023-03-09] MEDS: CARVEDILOL 12.5 MG TABLET (FP) PO SCH ×2 (09:15→21:20)
[2023-03-09] MEDS: ACETAMINOPHEN 1000 MG/100 ML BAG IVPB PRN (09:16)
[2023-03-09] MEDS ORDERED: INSULIN ASPART SLIDING SCALE (NOVOLOG) 1 VIAL SQ ONE (21:02)
[2023-03-09] MEDS: DOCUSATE SODIUM 100 MG CAPSULE (FP) PO SCH (21:19)
[2023-03-09] MEDS: ATORVASTATIN CA 80 MG TABLET (FP) PO SCH (21:20)
[2023-03-10] MEDS: POLYETHYLENE GLYCOL (HEALTHYLAX) 3350 17 GM PACKET PO SCH ×3 (05:14→22:01)
[2023-03-10] MEDS: CLINDAMYCIN HCL 150 MG CAPSULE (FP) PO SCH ×3 (05:14→22:00)
[2023-03-10] MEDS: HEPARIN NA (PORCINE) 5,000 UNITS/ML 1ML VIAL SQ SCH ×3 (05:14→22:01)
[2023-03-10] MEDS: INSULIN ASPART SLIDING SCALE (NOVOLOG) 1 VIAL SQ SCH ×4 (07:16→22:53)
[2023-03-10 07:36] LABS: HEMATOCRIT 33.2 % (32.4-45.2); MCH 23.2 pg (25.7-33.7); MCHC 30.1 g/dl (32.0-36.0); MEAN CELL VOLUME 77.1 fl (80-96); MEAN PLT VOLUME 10.4 fl (7.5-11.1); PLATELET COUNT 115 10^3/uL (134-434); RDW 20.4 % (11.6-15.6); WHITE BLOOD COUNT 6.2 K/mm3 (4.0-10.0)
[2023-03-10 07:41] LABS: CALCIUM 8.3 mg/dL (8.5-10.1)
[2023-03-10 07:43] LABS: ALBUMIN 2.2 g/dl (3.4-5.0); BLOOD UREA NITROGEN 88.3 mg/dL (7-18)
[2023-03-10 07:46] LABS: CREATININE 1.5 mg/dL (0.55-1.3)
[2023-03-10 07:47] LABS: TOT PROT 5.3 g/dl (6.4-8.2)
[2023-03-10 07:48] LABS: BILIRUBIN,TOTAL 0.4 mg/dL (0.2-1)
[2023-03-10] MEDS: FUROSEMIDE 40 MG TABLET (FP) PO SCH (09:00)
[2023-03-10] MEDS: SODIUM ZIRCONIUM CYCLOSILICATE (LOKELMA) 5 GM PACKET PO SCH (09:00)
[2023-03-10] MEDS: ASPIRIN COATED 81 MG TABLET.EC PO SCH (09:00)
[2023-03-10] MEDS: CARVEDILOL 12.5 MG TABLET (FP) PO SCH ×2 (09:00→22:01)
[2023-03-10] MEDS: SILVER SULFADIAZINE 1% TOP CREAM 50 GM JAR TP SCH (09:01)
[2023-03-10] MEDS ORDERED: SACUBITRIL/VALSARTAN 24 MG-26 MG TABLET PO SCH (10:00)
[2023-03-10] MEDS ORDERED: GLYCERIN 1 RECTAL SUPPOSITORY, ADULT RC ONE ×2 (16:09→22:00)
[2023-03-10] MEDS: DOCUSATE SODIUM 100 MG CAPSULE (FP) PO SCH (21:59)
[2023-03-10] MEDS: ATORVASTATIN CA 80 MG TABLET (FP) PO SCH (22:00)
[2023-03-10] MEDS: SENNOSIDES 8.6MG TABLET (FP) PO SCH (22:02)
[2023-03-11] MEDS: HEPARIN NA (PORCINE) 5,000 UNITS/ML 1ML VIAL SQ SCH ×2 (06:17→14:04)
[2023-03-11] MEDS: CLINDAMYCIN HCL 150 MG CAPSULE (FP) PO SCH ×3 (06:17→22:16)
[2023-03-11] MEDS: INSULIN ASPART SLIDING SCALE (NOVOLOG) 1 VIAL SQ SCH ×4 (06:27→22:32)
[2023-03-11] MEDS: POLYETHYLENE GLYCOL (HEALTHYLAX) 3350 17 GM PACKET PO SCH ×3 (06:29→22:17)
[2023-03-11 07:53] LABS: HEMATOCRIT 32.3 % (32.4-45.2); HEMOGLOBIN 9.5 GM/dL (10.7-15.3); MCH 22.7 pg (25.7-33.7); MCHC 29.2 g/dl (32.0-36.0); MEAN CELL VOLUME 77.6 fl (80-96); MEAN PLT VOLUME 10.1 fl (7.5-11.1); PLATELET COUNT 113 10^3/uL (134-434); RBC 4.17 M/mm3 (3.60-5.2); WHITE BLOOD COUNT 5.6 K/mm3 (4.0-10.0)
[2023-03-11 08:22] LABS: CREATININE 1.4 mg/dL (0.55-1.3); PHOSPHOROUS 4.1 mg/dL (2.5-4.9)
[2023-03-11 08:23] LABS: BILIRUBIN,TOTAL 0.5 mg/dL (0.2-1); TOT PROT 5.3 g/dl (6.4-8.2)
[2023-03-11 08:52] LABS: ALBUMIN 2.2 g/dl (3.4-5.0); BLOOD UREA NITROGEN 87.6 mg/dL (7-18); CALCIUM 8.6 mg/dL (8.5-10.1); MAGNESIUM 2.6 mg/dL (1.8-2.4)
[2023-03-11] MEDS: SODIUM ZIRCONIUM CYCLOSILICATE (LOKELMA) 5 GM PACKET PO SCH (09:12)
[2023-03-11] MEDS: ASPIRIN COATED 81 MG TABLET.EC PO SCH (09:12)
[2023-03-11] MEDS: CARVEDILOL 12.5 MG TABLET (FP) PO SCH ×2 (09:12→22:17)
[2023-03-11] MEDS: FUROSEMIDE 40 MG TABLET (FP) PO SCH (09:13)
[2023-03-11] MEDS: SILVER SULFADIAZINE 1% TOP CREAM 50 GM JAR TP SCH (11:48)
[2023-03-11] MEDS ORDERED: FUROSEMIDE 40 MG/4 ML INJECTABLE VIAL IVPUSH ONE (14:00)
[2023-03-11] MEDS: ATORVASTATIN CA 80 MG TABLET (FP) PO SCH (22:17)
[2023-03-11] MEDS: DOCUSATE SODIUM 100 MG CAPSULE (FP) PO SCH (22:17)
[2023-03-11] MEDS: ZINC OXIDE 20% TOPICAL OINTMENT 30 GM TUBE TP SCH (22:18)
[2023-03-11] MEDS: SENNOSIDES 8.6MG TABLET (FP) PO SCH (22:19)
[2023-03-12] MEDS: CLINDAMYCIN HCL 150 MG CAPSULE (FP) PO SCH ×2 (05:10→16:11)
[2023-03-12] MEDS: POLYETHYLENE GLYCOL (HEALTHYLAX) 3350 17 GM PACKET PO SCH ×3 (05:10→21:36)
[2023-03-12] MEDS: INSULIN ASPART SLIDING SCALE (NOVOLOG) 1 VIAL SQ SCH ×4 (06:27→21:38)
[2023-03-12 09:56] LABS: HEMATOCRIT 31.3 % (32.4-45.2); HEMOGLOBIN 9.4 GM/dL (10.7-15.3); MCHC 30.2 g/dl (32.0-36.0); MEAN CELL VOLUME 76.4 fl (80-96); MEAN PLT VOLUME 10.7 fl (7.5-11.1); PLATELET COUNT 113 10^3/uL (134-434); RDW 20.3 % (11.6-15.6); WHITE BLOOD COUNT 5.8 K/mm3 (4.0-10.0)
[2023-03-12] MEDS: SODIUM ZIRCONIUM CYCLOSILICATE (LOKELMA) 5 GM PACKET PO SCH (10:46)
[2023-03-12] MEDS: SILVER SULFADIAZINE 1% TOP CREAM 50 GM JAR TP SCH (10:47)
[2023-03-12] MEDS: FUROSEMIDE 40 MG TABLET (FP) PO SCH ×2 (10:47→16:11)
[2023-03-12] MEDS: CARVEDILOL 12.5 MG TABLET (FP) PO SCH ×2 (10:47→21:36)
[2023-03-12] MEDS: ZINC OXIDE 20% TOPICAL OINTMENT 30 GM TUBE TP SCH ×2 (10:48→21:48)
[2023-03-12 11:02] LABS: ALBUMIN 2.3 g/dl (3.4-5.0); BLOOD UREA NITROGEN 79.2 mg/dL (7-18); CALCIUM 8.2 mg/dL (8.5-10.1); MAGNESIUM 2.5 mg/dL (1.8-2.4)
[2023-03-12 11:03] LABS: CREATININE 1.4 mg/dL (0.55-1.3)
[2023-03-12 11:04] LABS: TOT PROT 5.4 g/dl (6.4-8.2)
[2023-03-12 11:06] LABS: BILIRUBIN,TOTAL 0.7 mg/dL (0.2-1)
[2023-03-12] MEDS: ATORVASTATIN CA 80 MG TABLET (FP) PO SCH (21:36)
[2023-03-12] MEDS: SENNOSIDES 8.6MG TABLET (FP) PO SCH (21:36)
[2023-03-12] MEDS: DOCUSATE SODIUM 100 MG CAPSULE (FP) PO SCH (21:36)
[2023-03-12] MEDS: HEPARIN NA (PORCINE) 5,000 UNITS/ML 1ML VIAL SQ SCH (22:28)
[2023-03-13] MEDS: FUROSEMIDE 40 MG TABLET (FP) PO SCH ×2 (05:36→13:10)
[2023-03-13] MEDS: HEPARIN NA (PORCINE) 5,000 UNITS/ML 1ML VIAL SQ SCH ×3 (05:36→21:05)
[2023-03-13] MEDS: POLYETHYLENE GLYCOL (HEALTHYLAX) 3350 17 GM PACKET PO SCH ×3 (05:37→21:06)
[2023-03-13] MEDS: ACETAMINOPHEN 1000 MG/100 ML BAG IVPB PRN (05:40)
[2023-03-13] MEDS: INSULIN ASPART SLIDING SCALE (NOVOLOG) 1 VIAL SQ SCH ×4 (06:09→21:25)
[2023-03-13] MEDS: CARVEDILOL 12.5 MG TABLET (FP) PO SCH ×2 (09:12→21:06)
[2023-03-13] MEDS: SODIUM ZIRCONIUM CYCLOSILICATE (LOKELMA) 5 GM PACKET PO SCH (09:12)
[2023-03-13] MEDS: ZINC OXIDE 20% TOPICAL OINTMENT 30 GM TUBE TP SCH ×2 (09:13→21:07)
[2023-03-13] MEDS: SILVER SULFADIAZINE 1% TOP CREAM 50 GM JAR TP SCH (09:13)
[2023-03-13] MEDS: ASPIRIN COATED 81 MG TABLET.EC PO SCH (11:59)
[2023-03-13 12:41] LABS: HEMOGLOBIN 9.5 GM/dL (10.7-15.3); MCH 23.2 pg (25.7-33.7); MCHC 29.8 g/dl (32.0-36.0); MEAN CELL VOLUME 77.8 fl (80-96); MEAN PLT VOLUME 10.6 fl (7.5-11.1); PLATELET COUNT 119 10^3/uL (134-434); RBC 4.11 M/mm3 (3.60-5.2); WHITE BLOOD COUNT 6.2 K/mm3 (4.0-10.0)
[2023-03-13 13:01] LABS: POTASSIUM 4.4 mmol/L (3.5-5.1)
[2023-03-13 13:04] LABS: ALBUMIN 2.3 g/dl (3.4-5.0); BLOOD UREA NITROGEN 82.6 mg/dL (7-18); CALCIUM 8.2 mg/dL (8.5-10.1); MAGNESIUM 2.4 mg/dL (1.8-2.4)
[2023-03-13 13:08] LABS: CREATININE 1.4 mg/dL (0.55-1.3); PHOSPHOROUS 4.1 mg/dL (2.5-4.9)
[2023-03-13 13:09] LABS: BILIRUBIN,TOTAL 0.5 mg/dL (0.2-1); TOT PROT 5.4 g/dl (6.4-8.2)
[2023-03-13] MEDS: MELATONIN 1 MG TABLET PO PRN (21:05)
[2023-03-13] MEDS: SENNOSIDES 8.6MG TABLET (FP) PO SCH (21:06)
[2023-03-13] MEDS: ATORVASTATIN CA 80 MG TABLET (FP) PO SCH (21:06)
[2023-03-13] MEDS: DOCUSATE SODIUM 100 MG CAPSULE (FP) PO SCH (21:06)
[2023-03-13] MEDS ORDERED: INSULIN ASPART SLIDING SCALE (NOVOLOG) 1 VIAL SQ ONE (21:23)
[2023-03-14] MEDS: HEPARIN NA (PORCINE) 5,000 UNITS/ML 1ML VIAL SQ SCH ×3 (05:21→21:47)
[2023-03-14] MEDS: FUROSEMIDE 40 MG TABLET (FP) PO SCH (05:21)
[2023-03-14] MEDS: POLYETHYLENE GLYCOL (HEALTHYLAX) 3350 17 GM PACKET PO SCH ×3 (05:21→21:47)
[2023-03-14] MEDS: CARVEDILOL 12.5 MG TABLET (FP) PO SCH ×2 (10:17→21:46)
[2023-03-14] MEDS: SODIUM ZIRCONIUM CYCLOSILICATE (LOKELMA) 5 GM PACKET PO SCH (10:17)
[2023-03-14] MEDS: ASPIRIN COATED 81 MG TABLET.EC PO SCH (10:17)
[2023-03-14] MEDS: ZINC OXIDE 20% TOPICAL OINTMENT 30 GM TUBE TP SCH ×2 (11:13→21:57)
[2023-03-14] MEDS: SILVER SULFADIAZINE 1% TOP CREAM 50 GM JAR TP SCH (11:17)
[2023-03-14] MEDS: INSULIN ASPART SLIDING SCALE (NOVOLOG) 1 VIAL SQ SCH ×4 (12:19→22:48)
[2023-03-14] MEDS: SACUBITRIL/VALSARTAN 24 MG-26 MG TABLET PO SCH (21:46)
[2023-03-14] MEDS: SENNOSIDES 8.6MG TABLET (FP) PO SCH (21:46)
[2023-03-14] MEDS: ATORVASTATIN CA 80 MG TABLET (FP) PO SCH (21:47)
[2023-03-14] MEDS: DOCUSATE SODIUM 100 MG CAPSULE (FP) PO SCH (21:47)
[2023-03-15] MEDS: POLYETHYLENE GLYCOL (HEALTHYLAX) 3350 17 GM PACKET PO SCH ×3 (05:19→21:48)
[2023-03-15] MEDS: HEPARIN NA (PORCINE) 5,000 UNITS/ML 1ML VIAL SQ SCH ×3 (05:19→21:43)
[2023-03-15] MEDS: INSULIN ASPART SLIDING SCALE (NOVOLOG) 1 VIAL SQ SCH ×4 (06:00→21:43)
[2023-03-15 09:15] LABS: BASO % 2.1 % (0-2.0); EOS % 3.5 % (0-4.5); HEMATOCRIT 30.9 % (32.4-45.2); HEMOGLOBIN 9.1 GM/dL (10.7-15.3); LYMPH % 10.8 % (8-40); MCH 23.1 pg (25.7-33.7); MCHC 29.6 g/dl (32.0-36.0); MEAN CELL VOLUME 77.9 fl (80-96); MEAN PLT VOLUME 10.3 fl (7.5-11.1); MONO % 7.2 % (3.8-10.2); NEUT % 76.4 % (42.8-82.8); PLATELET COUNT 120 10^3/uL (134-434); RBC 3.96 M/mm3 (3.60-5.2); RDW 20.9 % (11.6-15.6); WHITE BLOOD COUNT 5.9 K/mm3 (4.0-10.0)
[2023-03-15] MEDS: ASPIRIN COATED 81 MG TABLET.EC PO SCH (09:16)
[2023-03-15] MEDS: CARVEDILOL 12.5 MG TABLET (FP) PO SCH ×2 (09:16→21:42)
[2023-03-15] MEDS: SACUBITRIL/VALSARTAN 24 MG-26 MG TABLET PO SCH ×2 (09:16→21:42)
[2023-03-15] MEDS: SODIUM ZIRCONIUM CYCLOSILICATE (LOKELMA) 5 GM PACKET PO SCH (09:17)
[2023-03-15] MEDS: FUROSEMIDE 40 MG TABLET (FP) PO SCH (09:21)
[2023-03-15] MEDS: SILVER SULFADIAZINE 1% TOP CREAM 50 GM JAR TP SCH (09:22)
[2023-03-15] MEDS: ZINC OXIDE 20% TOPICAL OINTMENT 30 GM TUBE TP SCH ×2 (09:22→21:43)
[2023-03-15 09:58] LABS: POTASSIUM 4.3 mmol/L (3.5-5.1)
[2023-03-15 09:59] LABS: ANISOCYTOSIS 2+; MACROCYTOSIS 0; OVALOCYTE 1+
[2023-03-15 10:18] LABS: CALCIUM 8.7 mg/dL (8.5-10.1)
[2023-03-15 10:19] LABS: ALBUMIN 2.4 g/dl (3.4-5.0); BLOOD UREA NITROGEN 79.3 mg/dL (7-18)
[2023-03-15 10:22] LABS: CREATININE 1.3 mg/dL (0.55-1.3)
[2023-03-15 10:23] LABS: BILIRUBIN,TOTAL 0.4 mg/dL (0.2-1)
[2023-03-15 10:24] LABS: TOT PROT 5.3 g/dl (6.4-8.2)
[2023-03-15] MEDS: SENNOSIDES 8.6MG TABLET (FP) PO SCH (21:42)
[2023-03-15] MEDS: DOCUSATE SODIUM 100 MG CAPSULE (FP) PO SCH (21:42)
[2023-03-15] MEDS: ATORVASTATIN CA 80 MG TABLET (FP) PO SCH (21:42)
[2023-03-16] MEDS: HEPARIN NA (PORCINE) 5,000 UNITS/ML 1ML VIAL SQ SCH ×3 (06:04→21:33)
[2023-03-16] MEDS: INSULIN ASPART SLIDING SCALE (NOVOLOG) 1 VIAL SQ SCH ×4 (06:05→21:43)
[2023-03-16] MEDS: POLYETHYLENE GLYCOL (HEALTHYLAX) 3350 17 GM PACKET PO SCH ×3 (06:05→22:18)
[2023-03-16] MEDS: ASPIRIN COATED 81 MG TABLET.EC PO SCH (11:47)
[2023-03-16] MEDS: CARVEDILOL 12.5 MG TABLET (FP) PO SCH ×2 (11:47→21:32)
[2023-03-16] MEDS: SODIUM ZIRCONIUM CYCLOSILICATE (LOKELMA) 5 GM PACKET PO SCH (11:47)
[2023-03-16] MEDS: FUROSEMIDE 40 MG TABLET (FP) PO SCH (11:47)
[2023-03-16] MEDS: SACUBITRIL/VALSARTAN 24 MG-26 MG TABLET PO SCH ×2 (11:48→21:32)
[2023-03-16] MEDS: ZINC OXIDE 20% TOPICAL OINTMENT 30 GM TUBE TP SCH ×2 (11:58→21:44)
[2023-03-16] MEDS: SILVER SULFADIAZINE 1% TOP CREAM 50 GM JAR TP SCH (11:58)
[2023-03-16] MEDS: VALSARTAN 40 MG TABLET PO SCH (18:02)
[2023-03-16] MEDS: DOCUSATE SODIUM 100 MG CAPSULE (FP) PO SCH (21:32)
[2023-03-16] MEDS: SENNOSIDES 8.6MG TABLET (FP) PO SCH (21:33)
[2023-03-16] MEDS: ATORVASTATIN CA 80 MG TABLET (FP) PO SCH (21:33)
[2023-03-17 05:33] VITALS: PULSE 62
[2023-03-17] MEDS: POLYETHYLENE GLYCOL (HEALTHYLAX) 3350 17 GM PACKET PO SCH ×2 (06:27→15:10)
[2023-03-17] MEDS: HEPARIN NA (PORCINE) 5,000 UNITS/ML 1ML VIAL SQ SCH ×2 (06:28→15:10)
[2023-03-17] MEDS: INSULIN ASPART SLIDING SCALE (NOVOLOG) 1 VIAL SQ SCH ×2 (06:28→12:46)
[2023-03-17 08:40] LABS: POTASSIUM 3.9 mmol/L (3.5-5.1)
[2023-03-17 08:41] LABS: CALCIUM 8.4 mg/dL (8.5-10.1)
[2023-03-17 08:42] LABS: ALBUMIN 2.2 g/dl (3.4-5.0); BASO % 2.6 % (0-2.0); BLOOD UREA NITROGEN 67.7 mg/dL (7-18); EOS % 3.5 % (0-4.5); HEMATOCRIT 32.8 % (32.4-45.2); HEMOGLOBIN 9.7 GM/dL (10.7-15.3); LYMPH % 14.4 % (8-40); MCH 23.1 pg (25.7-33.7); MCHC 29.5 g/dl (32.0-36.0); MEAN CELL VOLUME 78.3 fl (80-96); MEAN PLT VOLUME 10.6 fl (7.5-11.1); MONO % 5.4 % (3.8-10.2); NEUT % 74.1 % (42.8-82.8); PLATELET COUNT 111 10^3/uL (134-434); RBC 4.19 M/mm3 (3.60-5.2); RDW 20.7 % (11.6-15.6); WHITE BLOOD COUNT 6.1 K/mm3 (4.0-10.0)
[2023-03-17 08:45] LABS: CREATININE 1.1 mg/dL (0.55-1.3)
[2023-03-17 08:47] LABS: BILIRUBIN,TOTAL 0.6 mg/dL (0.2-1); TOT PROT 5.3 g/dl (6.4-8.2)
[2023-03-17] MEDS: ASPIRIN COATED 81 MG TABLET.EC PO SCH (10:30)
[2023-03-17] MEDS: CARVEDILOL 12.5 MG TABLET (FP) PO SCH (10:30)
[2023-03-17] MEDS: SODIUM ZIRCONIUM CYCLOSILICATE (LOKELMA) 5 GM PACKET PO SCH (10:30)
[2023-03-17] MEDS: SACUBITRIL/VALSARTAN 24 MG-26 MG TABLET PO SCH (10:30)
[2023-03-17] MEDS: FUROSEMIDE 40 MG TABLET (FP) PO SCH (10:30)
[2023-03-17] MEDS: VALSARTAN 40 MG TABLET PO SCH (10:30)
[2023-03-17] MEDS: ZINC OXIDE 20% TOPICAL OINTMENT 30 GM TUBE TP SCH (10:51)
[2023-03-17] MEDS: SILVER SULFADIAZINE 1% TOP CREAM 50 GM JAR TP SCH (10:51)
[2023-03-17 13:11] VITALS: BP 141/64; RESP 16; TEMP 97.9
[2023-03-19 13:07] LABS: BODY FLUID ALBUMIN 0.7 g/dL (Not Estab.)
== END 2023-03-17 18:18 | DRG 602 ==
LOC: JER 09:54 → JERBED 13:37 → OBSVTOIN 15:13 → J4W 18:48 → JERBED 18:48 → J4W 19:49 → J4S 03-01 12:18
PROVIDERS: ADMIT Internal Medicine; ATTEND Internal Medicine
PROC: 0DJD8ZZ Inspection of Lower Intestinal Tract, Via Natural or Artificial Opening Endoscopic (ICD-10-PCS; principal; 2023-03-04 11:00)
PROC: 0W9B3ZZ Drainage of Left Pleural Cavity, Percutaneous Approach (ICD-10-PCS; 2023-03-12)
DX: L03.115 Cellulitis of right lower limb (principal); I50.43 Acute on chronic combined systolic (congestive) and diastolic (congestive) heart failure; L97.818 Non-pressure chronic ulcer of other part of right lower leg with other specified severity; I13.0 Hypertensive heart and chronic kidney disease with heart failure and stage 1 through stage 4 chronic kidney disease, or unspecified chronic kidney disease; N17.9 Acute kidney failure, unspecified; J90 Pleural effusion, not elsewhere classified; R18.8 Other ascites; E87.0 Hyperosmolality and hypernatremia; I25.10 Atherosclerotic heart disease of native coronary artery without angina pectoris; E78.5 Hyperlipidemia, unspecified; I27.20 Pulmonary hypertension, unspecified; K21.9 Gastro-esophageal reflux disease without esophagitis; I08.0 Rheumatic disorders of both mitral and aortic valves; D64.9 Anemia, unspecified; E11.51 Type 2 diabetes mellitus with diabetic peripheral angiopathy without gangrene; K57.90 Diverticulosis of intestine, part unspecified, without perforation or abscess without bleeding; I45.10 Unspecified right bundle-branch block; E87.5 Hyperkalemia; E11.22 Type 2 diabetes mellitus with diabetic chronic kidney disease; N18.9 Chronic kidney disease, unspecified; K59.81 Ogilvie syndrome; R94.5 Abnormal results of liver function studies; N28.1 Cyst of kidney, acquired; Z22.322 Carrier or suspected carrier of Methicillin resistant Staphylococcus aureus
CPT/HCPCS: 36415; 71045-TC-FY; 74018-TC-FY; 74176-TC; 74181-TC; 76705-TC; 76775-TC; 76942; 80048; 80053; 80076; 81003; 82042; 82150; 82465; 82550; 82945; 82962; 82977; 83605; 83615; 83735; 83880; 83986; 84100; 84157; 84478; 84484; 85025; 85027; 85379; 85610; 86140; 87040; 87070; 87075; 87102; 87116; 87186; 87205; 87206; 87210; 87635; 88108; 88305-TC; 93005; 93010; 93306-TC; 93970-TC; 93971-TC; 97116-GP; 97162-GP; 99285-25; G0378; G0463-25; G0480; J1644

== ENCOUNTER 2023-04-02 19:35 | Inpatient (IN) | payer OTHER ==
[2023-04-02] MEDS ORDERED: ACETAMINOPHEN 1000 MG/100 ML BAG IVPB ONE (22:12)
[2023-04-02 22:49] LABS: HEMATOCRIT 29.6 % (32.4-45.2); HEMOGLOBIN 8.6 GM/dL (10.7-15.3); MCH 23.1 pg (25.7-33.7); MCHC 28.9 g/dl (32.0-36.0); MEAN CELL VOLUME 79.9 fl (80-96); MEAN PLT VOLUME 10.6 fl (7.5-11.1); PLATELET COUNT 87 10^3/uL (134-434); RBC 3.71 M/mm3 (3.60-5.2); RDW 23.9 % (11.6-15.6); VENOUS BASE EXCESS 6.1 mmol/L (-2-2); VENOUS O2 SATURATION 46.5 % (70-80); VENOUS PH 7.281 (7.310-7.410)
[2023-04-02 22:50] LABS: VENOUS PCO2 74.8 mmHg (38-52)
[2023-04-02 22:55] LABS: INR 1.36 (0.83-1.09); PROTHROMBIN TIME (PATIENT) 15.7 SEC (9.7-13.0)
[2023-04-02] MEDS ORDERED: PIPERACILLIN/TAZOB 3.375 GM 3.375 GM in DEXTROSE 5%-WATER - 50 ML IVPB ONE (22:57)
[2023-04-02] MEDS ORDERED: VANCOMYCIN 1,000 MG in DEXTROSE 5%-WATER - 250 ML IVPB ONE (22:57)
[2023-04-02 22:58] LABS: ACTIVATED PTT 30.8 SECONDS (25.2-36.5)
[2023-04-02 23:05] LABS: POTASSIUM 5.1 mmol/L (3.5-5.1)
[2023-04-02 23:07] LABS: CALCIUM 7.8 mg/dL (8.5-10.1)
[2023-04-02 23:08] LABS: ALBUMIN 2.4 g/dl (3.4-5.0); BLOOD UREA NITROGEN 71.6 mg/dL (7-18)
[2023-04-02 23:11] LABS: CREATININE 1.5 mg/dL (0.55-1.3)
[2023-04-02 23:13] LABS: BILIRUBIN,TOTAL 0.4 mg/dL (0.2-1); TOT PROT 5.8 g/dl (6.4-8.2)
[2023-04-02 23:37] LABS: ANISOCYTOSIS 3+; MACROCYTOSIS 0; OVALOCYTE 2+
[2023-04-02 23:40] LABS: PLATELET ESTIMATE DECREASED
[2023-04-03] MEDS ORDERED: FUROSEMIDE 40 MG/4 ML INJECTABLE VIAL IVPUSH ONE ×4 (00:02→22:15)
[2023-04-03] MEDS ORDERED: ACETAMINOPHEN INJECTION 100 ML IVPB ONE (01:33)
[2023-04-03] MEDS ORDERED: FUROSEMIDE 40 MG/4 ML INJECTABLE VIAL ONE (01:34)
[2023-04-03] MEDS ORDERED: PIPERACILLIN/TAZOB 3.375 GM 3.375 GM/50 ML BAG IVPB ONE ×2 (01:34→11:07)
[2023-04-03] MEDS ORDERED: VANCOMYCIN 1 GRAM (PRE-DOCKED) 1,000 MG/250 ML BAG IVPB ONE ×2 (02:56)
[2023-04-03] MEDS ORDERED: ALBUTEROL SO4 2.5/IPRATROPIUM 0.5 INH SOL 3 ML VIAL.NEB. NEB ONE (04:18)
[2023-04-03 04:59] LABS: EPI CELLS >36 /uL (0-25.1); HYALINE CASTS 3 /uL (0-3.1); PH,URINE 5.5 (5.0-8.0); URINE APPEARANCE TURBID; URINE BACTERIA 1951 /uL (0-1359); URINE BILIRUBIN NEGATIVE (NEGATIVE); URINE COLOR YELLOW; URINE GLUCOSE (UA) NEGATIVE (NEGATIVE); URINE KETONE NEGATIVE (NEGATIVE); URINE LEUK ESTERASE 3+ (NEGATIVE); URINE NITRITE NEGATIVE (NEGATIVE); URINE PROTEIN 2+ (NEGATIVE); URINE WBC 63 /uL (0-25.8)
[2023-04-03] MEDS ORDERED: VANCOMYCIN 1,000 MG in DEXTROSE 5%-WATER - 250 ML IVPB SCH (05:00)
[2023-04-03 08:25] LABS: URINE RBC 50.8 /uL (0-23.9)
[2023-04-03 08:28] LABS: URINE CRYSTALS MODERATE /hpf
[2023-04-03] MEDS ORDERED: SODIUM ZIRCONIUM CYCLOSILICATE (LOKELMA) 5 GM PACKET PO SCH (10:00)
[2023-04-03] MEDS ORDERED: ENOXAPARIN NA (PORCINE) 40 MG/0.4 ML DISP.SYRIN SQ SCH (10:00)
[2023-04-03] MEDS ORDERED: PIPERACILLIN/TAZOB 3.375 GM 3.375 GM in DEXTROSE 5%-WATER - 50 ML IVPB SCH ×2 (10:00→18:00)
[2023-04-03] MEDS ORDERED: ASPIRIN COATED 81 MG TABLET.EC PO SCH (10:00)
[2023-04-03] MEDS ORDERED: CARVEDILOL 12.5 MG TABLET (FP) PO SCH (10:00)
[2023-04-03 10:53] LABS: BASO % 0.2 % (0-2.0); EOS % 0.1 % (0-4.5); HEMATOCRIT 30.1 % (32.4-45.2); LYMPH % 4.1 % (8-40); MCH 23.8 pg (25.7-33.7); MCHC 29.8 g/dl (32.0-36.0); MEAN CELL VOLUME 79.8 fl (80-96); MEAN PLT VOLUME 9.5 fl (7.5-11.1); MONO % 5.9 % (3.8-10.2); NEUT % 89.7 % (42.8-82.8); PLATELET COUNT 73 10^3/uL (134-434); RBC 3.77 M/mm3 (3.60-5.2); RDW 24.4 % (11.6-15.6); WHITE BLOOD COUNT 14.1 K/mm3 (4.0-10.0)
[2023-04-03 11:11] LABS: POTASSIUM 4.1 mmol/L (3.5-5.1)
[2023-04-03 11:21] LABS: BLOOD UREA NITROGEN 73.2 mg/dL (7-18)
[2023-04-03 11:22] LABS: CALCIUM 7.8 mg/dL (8.5-10.1); MAGNESIUM 2.7 mg/dL (1.8-2.4)
[2023-04-03 11:25] LABS: CREATININE 1.6 mg/dL (0.55-1.3)
[2023-04-03] MEDS: FUROSEMIDE 40 MG/4 ML INJECTABLE VIAL IVPUSH SCH ×2 (11:38→14:36)
[2023-04-03] MEDS: POLYETHYLENE GLYCOL (HEALTHYLAX) 3350 17 GM PACKET PO SCH ×2 (11:39→22:14)
[2023-04-03] MEDS: INSULIN ASPART SLIDING SCALE (NOVOLOG) 1 VIAL SQ SCH ×3 (13:13→22:14)
[2023-04-03] MEDS ORDERED: DOPAMINE 400 MG/D5W - 400,000 MCG/250 ML INFUS.BAG IVPB SCH (20:15)
[2023-04-03 20:18] LABS: BASO % 0.1 % (0-2.0); EOS % 0.1 % (0-4.5); HEMATOCRIT 29.4 % (32.4-45.2); LYMPH % 5.5 % (8-40); MCH 24.3 pg (25.7-33.7); MCHC 30.5 g/dl (32.0-36.0); MEAN CELL VOLUME 79.6 fl (80-96); MEAN PLT VOLUME 9.8 fl (7.5-11.1); MONO % 8.6 % (3.8-10.2); NEUT % 85.7 % (42.8-82.8); PLATELET COUNT 71 10^3/uL (134-434); RDW 24.9 % (11.6-15.6); WHITE BLOOD COUNT 9.6 K/mm3 (4.0-10.0)
[2023-04-03] MEDS: NOREPINEPHRINE 0.9 % NACL 8 MG/250 ML BAG IVPB SCH (20:30)
[2023-04-03 20:32] LABS: POTASSIUM 4.8 mmol/L (3.5-5.1)
[2023-04-03 20:34] LABS: BLOOD UREA NITROGEN 77.8 mg/dL (7-18); CALCIUM 7.5 mg/dL (8.5-10.1)
[2023-04-03 20:35] LABS: ALBUMIN 1.9 g/dl (3.4-5.0)
[2023-04-03 20:38] LABS: CREATININE 1.5 mg/dL (0.55-1.3)
[2023-04-03 20:39] LABS: BILIRUBIN,TOTAL 0.7 mg/dL (0.2-1); TOT PROT 4.7 g/dl (6.4-8.2)
[2023-04-03 20:40] LABS: LACTIC ACID 2.3 mmol/L (0.4-2.0)
[2023-04-03] MEDS ORDERED: TRIPLE LUMEN FLUSH 4 ML ML IVPUSH PRN (21:19)
[2023-04-03] MEDS: FUROSEMIDE INJECTION 100 MG in DEXTROSE 5%-WATER - 90 ML IVPB SCH (21:39)
[2023-04-03] MEDS ORDERED: SENNOSIDES 8.6MG TABLET (FP) PO SCH (22:00)
[2023-04-03] MEDS ORDERED: ATORVASTATIN CA 80 MG TABLET (FP) PO SCH (22:00)
[2023-04-03] MEDS ORDERED: DOCUSATE SODIUM 100 MG CAPSULE (FP) PO SCH (22:00)
[2023-04-03] MEDS ORDERED: DEXTROSE 50%-WATER 25 GM/50 ML DISP.SYRIN IVPUSH PRN (22:08)
[2023-04-03 22:09] LABS: ARTERIAL BLD GAS O2 SATURATION 99.2 % (95-98); ARTERIAL BLOOD GAS BASE EXCESS 6.3 mmol/L (-2-2); ARTERIAL BLOOD GAS PO2 178.3 mmHg (80-100); ARTERIAL BLOOD GAS pH 7.435 (7.350-7.450)
[2023-04-03 22:11] LABS: VENT RATE 16
[2023-04-03] MEDS: MUPIROCIN 2% TOPICAL OINTMENT FOR DECOLONIZATION NS SCH (22:13)
[2023-04-03] MEDS: CHLORHEXIDINE GLUCONATE 4% CLEANSER FOR DECOLONIZATION TP SCH (22:14)
[2023-04-03] MEDS: VASopressin 40 UNITS/100 ML BAG IV SCH (22:52)
[2023-04-04] MEDS ORDERED: VANCOMYCIN/WATER FOR INJ (PEG) 1,000 MG/200 ML BAG IVPB SCH ×2 (02:00)
[2023-04-04] MEDS: PIPERACILLIN/TAZOB 3.375 GM 3.375 GM in DEXTROSE 5%-WATER - 50 ML IVPB SCH ×3 (02:04→18:21)
[2023-04-04] MEDS ORDERED: FUROSEMIDE 40 MG/4 ML INJECTABLE VIAL IVPUSH SCH ×2 (06:00)
[2023-04-04] MEDS: NOREPINEPHRINE 0.9 % NACL 8 MG/250 ML BAG IVPB SCH (06:45)
[2023-04-04] MEDS: FUROSEMIDE INJECTION 100 MG in DEXTROSE 5%-WATER - 90 ML IVPB SCH (06:45)
[2023-04-04] MEDS: INSULIN ASPART SLIDING SCALE (NOVOLOG) 1 VIAL SQ SCH ×4 (06:46→21:40)
[2023-04-04 06:52] LABS: HEMATOCRIT 29.7 % (32.4-45.2); HEMOGLOBIN 9.1 GM/dL (10.7-15.3); MCHC 30.7 g/dl (32.0-36.0); MEAN CELL VOLUME 78.4 fl (80-96); MEAN PLT VOLUME 10.4 fl (7.5-11.1); PLATELET COUNT 103 10^3/uL (134-434); RBC 3.79 M/mm3 (3.60-5.2); RDW 24.6 % (11.6-15.6); WHITE BLOOD COUNT 13.1 K/mm3 (4.0-10.0)
[2023-04-04 07:03] LABS: POTASSIUM 5.1 mmol/L (3.5-5.1)
[2023-04-04 07:10] LABS: ALBUMIN 1.8 g/dl (3.4-5.0); BLOOD UREA NITROGEN 78.8 mg/dL (7-18); CREATININE 1.4 mg/dL (0.55-1.3)
[2023-04-04 07:11] LABS: BILIRUBIN,TOTAL 1.1 mg/dL (0.2-1)
[2023-04-04 07:12] LABS: CALCIUM 7.7 mg/dL (8.5-10.1)
[2023-04-04] MEDS: ENOXAPARIN NA (PORCINE) 40 MG/0.4 ML DISP.SYRIN SQ SCH (10:38)
[2023-04-04] MEDS: SODIUM ZIRCONIUM CYCLOSILICATE (LOKELMA) 5 GM PACKET PO SCH (10:38)
[2023-04-04] MEDS: POLYETHYLENE GLYCOL (HEALTHYLAX) 3350 17 GM PACKET PO SCH ×2 (10:38→21:40)
[2023-04-04] MEDS: ASPIRIN COATED 81 MG TABLET.EC PO SCH (10:38)
[2023-04-04] MEDS: MUPIROCIN 2% TOPICAL OINTMENT FOR DECOLONIZATION NS SCH ×2 (10:39→22:00)
[2023-04-04] MEDS ORDERED: RAPID SEQUENCE INTUBATION KIT NR ONE (11:28)
[2023-04-04] MEDS ORDERED: ROCURONIUM BROMIDE 50 MG/5 ML VIAL IV ONE (11:45)
[2023-04-04] MEDS ORDERED: ETOMIDATE 20 MG/10 ML VIAL IVPUSH ONE (11:45)
[2023-04-04 11:56] LABS: ANISOCYTOSIS 2+; MACROCYTOSIS 0; OVALOCYTE 1+
[2023-04-04 13:00] LABS: ARTERIAL BLD GAS O2 SATURATION 72.7 % (95-98); ARTERIAL BLOOD GAS BASE EXCESS 8.3 mmol/L (-2-2); ARTERIAL BLOOD GAS pH 7.529 (7.350-7.450)
[2023-04-04 13:17] LABS: ARTERIAL BLOOD GAS PO2 34.1 mmHg (80-100)
[2023-04-04] MEDS ORDERED: VASopressin 20 UNITS/ML VIAL IV ONE (18:47)
[2023-04-04] MEDS: ATORVASTATIN CA 80 MG TABLET (FP) PO SCH (21:49)
[2023-04-04] MEDS ORDERED: DOCUSATE SODIUM 100 MG CAPSULE (FP) PO SCH (22:00)
[2023-04-04] MEDS: CHLORHEXIDINE GLUCONATE 4% CLEANSER FOR DECOLONIZATION TP SCH (22:00)
[2023-04-04] MEDS ORDERED: SENNOSIDES 8.6MG TABLET (FP) PO SCH (22:00)
[2023-04-05] MEDS: NOREPINEPHRINE 0.9 % NACL 8 MG/250 ML BAG IVPB SCH ×2 (01:18→09:00)
[2023-04-05] MEDS: VASopressin 40 UNITS/100 ML BAG IV SCH ×2 (01:19→14:00)
[2023-04-05] MEDS: FUROSEMIDE INJECTION 100 MG in DEXTROSE 5%-WATER - 90 ML IVPB SCH ×2 (02:29→07:00)
[2023-04-05] MEDS: PIPERACILLIN/TAZOB 3.375 GM 3.375 GM in DEXTROSE 5%-WATER - 50 ML IVPB SCH ×3 (02:31→17:12)
[2023-04-05] MEDS ORDERED: ACETAMINOPHEN 1000 MG/100 ML BAG IVPB PRN (04:32)
[2023-04-05 05:36] LABS: ARTERIAL BLD GAS O2 SATURATION 99.3 % (95-98); ARTERIAL BLOOD GAS BASE EXCESS 8.8 mmol/L (-2-2); ARTERIAL BLOOD GAS PO2 144.2 mmHg (80-100)
[2023-04-05 05:38] LABS: VENT MODE A/C; VENT RATE 24
[2023-04-05 05:45] LABS: ARTERIAL BLOOD GAS pH 7.646 (7.350-7.450)
[2023-04-05] MEDS: INSULIN ASPART SLIDING SCALE (NOVOLOG) 1 VIAL SQ SCH ×4 (07:50→21:38)
[2023-04-05 07:53] LABS: HEMOGLOBIN 8.2 GM/dL (10.7-15.3); MCH 24.3 pg (25.7-33.7); MCHC 31.7 g/dl (32.0-36.0); MEAN CELL VOLUME 76.7 fl (80-96); MEAN PLT VOLUME 10.3 fl (7.5-11.1); PLATELET COUNT 95 10^3/uL (134-434); RBC 3.39 M/mm3 (3.60-5.2); RDW 24.5 % (11.6-15.6); WHITE BLOOD COUNT 9.5 K/mm3 (4.0-10.0)
[2023-04-05 07:57] LABS: POTASSIUM 3.4 mmol/L (3.5-5.1)
[2023-04-05 08:09] LABS: LACTIC ACID 2.4 mmol/L (0.4-2.0)
[2023-04-05 08:17] LABS: CALCIUM 7.7 mg/dL (8.5-10.1)
[2023-04-05 08:18] LABS: ALBUMIN 1.5 g/dl (3.4-5.0); BLOOD UREA NITROGEN 75.4 mg/dL (7-18)
[2023-04-05 08:21] LABS: CREATININE 1.6 mg/dL (0.55-1.3)
[2023-04-05 08:23] LABS: BILIRUBIN,TOTAL 1.2 mg/dL (0.2-1); TOT PROT 4.1 g/dl (6.4-8.2)
[2023-04-05 08:24] LABS: INR 1.65 (0.83-1.09); PROTHROMBIN TIME (PATIENT) 19.1 SEC (9.7-13.0)
[2023-04-05] MEDS: ASPIRIN COATED 81 MG TABLET.EC PO SCH (09:59)
[2023-04-05] MEDS: ENOXAPARIN NA (PORCINE) 40 MG/0.4 ML DISP.SYRIN SQ SCH (09:59)
[2023-04-05] MEDS: MUPIROCIN 2% TOPICAL OINTMENT FOR DECOLONIZATION NS SCH ×2 (10:00→21:15)
[2023-04-05] MEDS: SODIUM ZIRCONIUM CYCLOSILICATE (LOKELMA) 5 GM PACKET PO SCH (10:14)
[2023-04-05 10:41] LABS: ANISOCYTOSIS 0; MACROCYTOSIS 0
[2023-04-05 10:45] LABS: ARTERIAL BLD GAS O2 SATURATION 99.2 % (95-98); ARTERIAL BLOOD GAS BASE EXCESS 10.5 mmol/L (-2-2); ARTERIAL BLOOD GAS pH 7.557 (7.350-7.450)
[2023-04-05 10:47] LABS: VENT MODE A/C; VENT RATE 20
[2023-04-05] MEDS: VANCOMYCIN 250 MG/5 ML ORAL SOLUTION PO SCH ×2 (14:30→17:02)
[2023-04-05] MEDS ORDERED: INSULIN (NOVOLOG) ASPART 100 UNITS/ML 10ML VIAL ONE (17:11)
[2023-04-05] MEDS: CHLORHEXIDINE GLUCONATE 4% CLEANSER FOR DECOLONIZATION TP SCH (21:15)
[2023-04-05] MEDS: HEPARIN NA (PORCINE) 5,000 UNITS/ML 1ML VIAL SQ SCH (21:17)
[2023-04-05] MEDS: ATORVASTATIN CA 80 MG TABLET (FP) PO SCH (21:17)
[2023-04-06] MEDS: VANCOMYCIN 250 MG/5 ML ORAL SOLUTION PO SCH ×4 (01:00→17:55)
[2023-04-06] MEDS: PIPERACILLIN/TAZOB 3.375 GM 3.375 GM in DEXTROSE 5%-WATER - 50 ML IVPB SCH ×3 (02:20→17:14)
[2023-04-06] MEDS: INSULIN ASPART SLIDING SCALE (NOVOLOG) 1 VIAL SQ SCH ×4 (06:18→21:27)
[2023-04-06] MEDS: FUROSEMIDE INJECTION 100 MG in DEXTROSE 5%-WATER - 90 ML IVPB SCH ×2 (07:00→17:56)
[2023-04-06 07:07] LABS: VENOUS BASE EXCESS 5.5 mmol/L (-2-2); VENOUS O2 SATURATION 83.6 % (70-80); VENOUS PCO2 41.6 mmHg (38-52); VENOUS PH 7.471 (7.310-7.410)
[2023-04-06 07:13] LABS: HEMOGLOBIN 8.6 GM/dL (10.7-15.3); MCH 23.8 pg (25.7-33.7); MCHC 30.6 g/dl (32.0-36.0); MEAN CELL VOLUME 77.7 fl (80-96); MEAN PLT VOLUME 9.6 fl (7.5-11.1); PLATELET COUNT 74 10^3/uL (134-434); RDW 24.1 % (11.6-15.6); WHITE BLOOD COUNT 13.4 K/mm3 (4.0-10.0)
[2023-04-06 07:53] LABS: CHLORIDE 107 mmol/L (98-107); SODIUM 152 mmol/L (136-145)
[2023-04-06 07:54] LABS: CALCIUM 7.6 mg/dL (8.5-10.1)
[2023-04-06 07:55] LABS: ALBUMIN 1.4 g/dl (3.4-5.0); BLOOD UREA NITROGEN 70.1 mg/dL (7-18); CO2 34 mmol/L (21-32); MAGNESIUM 2.3 mg/dL (1.8-2.4)
[2023-04-06 07:58] LABS: CREATININE 1.6 mg/dL (0.55-1.3); PHOSPHOROUS 4.1 mg/dL (2.5-4.9); SGOT/AST 86 U/L (15-37); SGPT/ALT 27 U/L (13-61)
[2023-04-06 08:00] LABS: BILIRUBIN,TOTAL 1.2 mg/dL (0.2-1); TOT PROT 4.3 g/dl (6.4-8.2)
[2023-04-06 08:01] LABS: ALK PHOS 149 U/L (45-117)
[2023-04-06 08:03] LABS: GLUCOSE,RANDOM 98 mg/dL (74-106)
[2023-04-06 08:06] LABS: ANION GAP 12 mmol/L (4-13); POTASSIUM 2.8 mmol/L (3.5-5.1)
[2023-04-06] MEDS: KCL 20 MEQ PREMIX BAG 20 MEQ/100 ML INFUS.BAG IVPB SCH ×4 (09:27→22:53)
[2023-04-06] MEDS: MUPIROCIN 2% TOPICAL OINTMENT FOR DECOLONIZATION NS SCH ×2 (10:00→21:27)
[2023-04-06] MEDS: HEPARIN NA (PORCINE) 5,000 UNITS/ML 1ML VIAL SQ SCH ×2 (10:00→21:27)
[2023-04-06] MEDS: ASPIRIN COATED 81 MG TABLET.EC PO SCH (10:00)
[2023-04-06 11:35] LABS: ANISOCYTOSIS 0; MACROCYTOSIS 0
[2023-04-06] MEDS ORDERED: ACETAMINOPHEN 1000 MG/100 ML BAG IVPB ONE (12:35)
[2023-04-06] MEDS ORDERED: DEXMEDETOMIDINE PREMIX 400 MCG/100 ML BAG IVPB SCH (16:30)
[2023-04-06] MEDS: NOREPINEPHRINE 0.9 % NACL 8 MG/250 ML BAG IVPB SCH (17:17)
[2023-04-06 17:45] LABS: POTASSIUM 3.1 mmol/L (3.5-5.1)
[2023-04-06 17:47] LABS: ALBUMIN 1.4 g/dl (3.4-5.0); CALCIUM 7.4 mg/dL (8.5-10.1); MAGNESIUM 2.4 mg/dL (1.8-2.4)
[2023-04-06] MEDS: POTASSIUM CHLORIDE 20 MEQ in DEXTROSE 5%-WATER - 1,000 ML IV SCH (17:47)
[2023-04-06] MEDS: ALBUMIN HUMAN 25% 12.5 GM/50 ML VIAL IV SCH ×3 (17:47→22:44)
[2023-04-06 17:50] LABS: CREATININE 1.7 mg/dL (0.55-1.3)
[2023-04-06 17:52] LABS: BILIRUBIN,TOTAL 1.2 mg/dL (0.2-1); TOT PROT 4.4 g/dl (6.4-8.2)
[2023-04-06] MEDS ORDERED: POTASSIUM CHLORIDE ORAL LIQUID 20 MEQ/15 ML PO ONE (20:31)
[2023-04-06] MEDS: ATORVASTATIN CA 80 MG TABLET (FP) PO SCH (21:27)
[2023-04-06] MEDS: CHLORHEXIDINE GLUCONATE 4% CLEANSER FOR DECOLONIZATION TP SCH (21:27)
[2023-04-06] MEDS: VASopressin 40 UNITS/100 ML BAG IV SCH (21:34)
[2023-04-07] MEDS: KCL 20 MEQ PREMIX BAG 20 MEQ/100 ML INFUS.BAG IVPB SCH ×2 (01:00→02:03)
[2023-04-07] MEDS: VANCOMYCIN 250 MG/5 ML ORAL SOLUTION PO SCH ×4 (01:00→17:21)
[2023-04-07] MEDS: PIPERACILLIN/TAZOB 3.375 GM 3.375 GM in DEXTROSE 5%-WATER - 50 ML IVPB SCH ×3 (02:04→17:22)
[2023-04-07] MEDS: ALBUMIN HUMAN 25% 12.5 GM/50 ML VIAL IV SCH (03:37)
[2023-04-07] MEDS: INSULIN ASPART SLIDING SCALE (NOVOLOG) 1 VIAL SQ SCH ×4 (06:02→22:09)
[2023-04-07 07:02] LABS: POTASSIUM 4.3 mmol/L (3.5-5.1)
[2023-04-07 07:04] LABS: CALCIUM 7.2 mg/dL (8.5-10.1)
[2023-04-07 07:05] LABS: BLOOD UREA NITROGEN 74.3 mg/dL (7-18); MAGNESIUM 2.1 mg/dL (1.8-2.4)
[2023-04-07 07:08] LABS: CREATININE 1.6 mg/dL (0.55-1.3); PHOSPHOROUS 3.9 mg/dL (2.5-4.9)
[2023-04-07 07:09] LABS: BILIRUBIN,TOTAL 1.2 mg/dL (0.2-1)
[2023-04-07 07:10] LABS: TOT PROT 4.2 g/dl (6.4-8.2)
[2023-04-07 07:15] LABS: ALBUMIN 1.9 g/dl (3.4-5.0)
[2023-04-07 07:27] LABS: HEMATOCRIT 24.6 % (32.4-45.2); HEMOGLOBIN 7.4 GM/dL (10.7-15.3); MCH 23.8 pg (25.7-33.7); MCHC 29.9 g/dl (32.0-36.0); MEAN CELL VOLUME 79.5 fl (80-96); WHITE BLOOD COUNT 8.7 K/mm3 (4.0-10.0)
[2023-04-07 09:53] LABS: ANISOCYTOSIS 1+; MACROCYTOSIS 0; TARGET CELLS 1+
[2023-04-07 09:57] LABS: PLATELET COUNT 40 10^3/uL (134-434)
[2023-04-07] MEDS: MUPIROCIN 2% TOPICAL OINTMENT FOR DECOLONIZATION NS SCH ×2 (10:42→22:09)
[2023-04-07] MEDS: ASPIRIN COATED 81 MG TABLET.EC PO SCH (10:49)
[2023-04-07] MEDS: HEPARIN NA (PORCINE) 5,000 UNITS/ML 1ML VIAL SQ SCH (11:15)
[2023-04-07 15:05] VITALS: BMI 23.9
[2023-04-07 17:53] LABS: EOS % 0.5 % (0-4.5); HEMATOCRIT 26.4 % (32.4-45.2); HEMOGLOBIN 7.9 GM/dL (10.7-15.3); MCH 23.6 pg (25.7-33.7); MCHC 29.9 g/dl (32.0-36.0); MEAN CELL VOLUME 78.9 fl (80-96); MONO % 3.1 % (3.8-10.2); NEUT % 91.4 % (42.8-82.8); RBC 3.34 M/mm3 (3.60-5.2); RDW 24.7 % (11.6-15.6)
[2023-04-07 18:26] LABS: ANISOCYTOSIS 3+; MACROCYTOSIS 0; OVALOCYTE 2+; TARGET CELLS 2+
[2023-04-07 18:31] LABS: MEAN PLT VOLUME 10.4 fl (7.5-11.1); PLATELET COUNT 61 10^3/uL (134-434)
[2023-04-07] MEDS: NOREPINEPHRINE 0.9 % NACL 8 MG/250 ML BAG IVPB SCH (18:52)
[2023-04-07] MEDS: POTASSIUM CHLORIDE 20 MEQ in DEXTROSE 5%-WATER - 1,000 ML IV SCH (19:27)
[2023-04-07] MEDS: FUROSEMIDE INJECTION 100 MG in DEXTROSE 5%-WATER - 90 ML IVPB SCH (22:08)
[2023-04-07] MEDS: ATORVASTATIN CA 80 MG TABLET (FP) PO SCH (22:09)
[2023-04-07] MEDS: CHLORHEXIDINE GLUCONATE 4% CLEANSER FOR DECOLONIZATION TP SCH (22:09)
[2023-04-08] MEDS: PIPERACILLIN/TAZOB 3.375 GM 3.375 GM in DEXTROSE 5%-WATER - 50 ML IVPB SCH ×3 (01:30→17:01)
[2023-04-08] MEDS: VANCOMYCIN ORAL SOLUTION 125 MG/2.5 ML PO SCH ×4 (01:30→17:01)
[2023-04-08] MEDS: INSULIN ASPART SLIDING SCALE (NOVOLOG) 1 VIAL SQ SCH ×3 (06:31→16:31)
[2023-04-08 06:38] LABS: INR 1.24 (0.83-1.09); PROTHROMBIN TIME (PATIENT) 14.3 SEC (9.7-13.0)
[2023-04-08 06:41] LABS: ACTIVATED PTT 36.1 SECONDS (25.2-36.5)
[2023-04-08 06:53] LABS: CHLORIDE 109 mmol/L (98-107); POTASSIUM 3.7 mmol/L (3.5-5.1); SODIUM 146 mmol/L (136-145)
[2023-04-08 06:55] LABS: ANION GAP 6 mmol/L (4-13); BLOOD UREA NITROGEN 73.8 mg/dL (7-18); CO2 31 mmol/L (21-32); GLUCOSE,RANDOM 227 mg/dL (74-106); MAGNESIUM 2.2 mg/dL (1.8-2.4)
[2023-04-08 06:58] LABS: CREATININE 1.9 mg/dL (0.55-1.3); PHOSPHOROUS 3.2 mg/dL (2.5-4.9); SGOT/AST 68 U/L (15-37); SGPT/ALT 24 U/L (13-61)
[2023-04-08 07:00] LABS: TOT PROT 3.8 g/dl (6.4-8.2)
[2023-04-08 07:02] LABS: ALBUMIN 1.4 g/dl (3.4-5.0); ALK PHOS 185 U/L (45-117); BILIRUBIN,TOTAL 0.9 mg/dL (0.2-1); CALCIUM 6.7 mg/dL (8.5-10.1)
[2023-04-08] MEDS ORDERED: CALCIUM GLUC IN NACL, ISO-OSM 1 GM/50 ML BAG IVPB ONE (07:30)
[2023-04-08 07:40] LABS: BASO % 0.1 % (0-2.0); EOS % 1.5 % (0-4.5); HEMATOCRIT 29.7 % (32.4-45.2); HEMOGLOBIN 8.9 GM/dL (10.7-15.3); LYMPH % 7.1 % (8-40); MCH 23.5 pg (25.7-33.7); MCHC 30.1 g/dl (32.0-36.0); MEAN CELL VOLUME 78.1 fl (80-96); MEAN PLT VOLUME 10.2 fl (7.5-11.1); MONO % 3.3 % (3.8-10.2); PLATELET COUNT 61 10^3/uL (134-434); RBC 3.81 M/mm3 (3.60-5.2); RDW 24.6 % (11.6-15.6)
[2023-04-08] MEDS ORDERED: DEXMEDETOMIDINE PREMIX 400 MCG/100 ML BAG IVPB SCH (08:45)
[2023-04-08] MEDS: ASPIRIN COATED 81 MG TABLET.EC PO SCH (09:10)
[2023-04-08] MEDS: MUPIROCIN 2% TOPICAL OINTMENT FOR DECOLONIZATION NS SCH (09:11)
[2023-04-08] MEDS ORDERED: INSULIN (NOVOLOG) ASPART 100 UNITS/ML 10ML VIAL ONE ×2 (10:04→10:23)
[2023-04-08 10:20] LABS: PLATELET ESTIMATE DECREASED
[2023-04-08] MEDS ORDERED: LACTATED RINGERS SOLUTION 1000 ML INFUS.BAG IV ONE (11:50)
[2023-04-08 14:40] VITALS: TEMP 95.5
[2023-04-08] MEDS ORDERED: morphine SULFATE 4 MG/ML VIAL ONE (17:59)
[2023-04-08] MEDS ORDERED: morphine CARPU-JECT 4 MG/1 ML DISP.SYRIN IVPUSH SCH ×2 (18:00→18:30)
[2023-04-08] MEDS ORDERED: morphine CARPU-JECT 4 MG/1 ML DISP.SYRIN IVPUSH ONE (18:19)
[2023-04-08 18:23] VITALS: BP 129/56; PULSE 81; RESP 20
[2023-04-08] MEDS: POTASSIUM CHLORIDE 20 MEQ in DEXTROSE 5%-WATER - 1,000 ML IV SCH (18:28)
[2023-04-08] MEDS ORDERED: morphine SULFATE 4 MG/ML VIAL IVPUSH ONE (18:45)
[2023-04-08] MEDS ORDERED: MORPHINE 100 MG/100 ML MG IV SCH (19:00)
== END 2023-04-08 21:08 | disposition expired | DRG 870 ==
LOC: JER 19:35 → JERBED 04-03 03:12 → J8W 04-03 19:03 → JICU 04-03 20:13
PROVIDERS: ADMIT Internal Medicine; ATTEND Internal Medicine
PROC: 05H633Z Insertion of Infusion Device into Left Subclavian Vein, Percutaneous Approach (ICD-10-PCS; 2023-04-03)
PROC: 03HC33Z Insertion of Infusion Device into Left Radial Artery, Percutaneous Approach (ICD-10-PCS; 2023-04-03)
PROC: 5A1955Z Respiratory Ventilation, Greater than 96 Consecutive Hours (ICD-10-PCS; principal; 2023-04-04)
PROC: 0BH17EZ Insertion of Endotracheal Airway into Trachea, Via Natural or Artificial Opening (ICD-10-PCS; 2023-04-04)
PROC: 5A12012 Performance of Cardiac Output, Single, Manual (ICD-10-PCS; 2023-04-08)
DX: A41.9 Sepsis, unspecified organism (principal); G93.41 Metabolic encephalopathy; I50.23 Acute on chronic systolic (congestive) heart failure; J96.01 Acute respiratory failure with hypoxia; R65.21 Severe sepsis with septic shock; J96.02 Acute respiratory failure with hypercapnia; A04.72 Enterocolitis due to Clostridium difficile, not specified as recurrent; J98.11 Atelectasis; R57.0 Cardiogenic shock; I11.0 Hypertensive heart disease with heart failure; I27.20 Pulmonary hypertension, unspecified; E78.5 Hyperlipidemia, unspecified; I25.10 Atherosclerotic heart disease of native coronary artery without angina pectoris; E11.9 Type 2 diabetes mellitus without complications; J45.909 Unspecified asthma, uncomplicated; L89.156 Pressure-induced deep tissue damage of sacral region; I46.9 Cardiac arrest, cause unspecified; Z95.1 Presence of aortocoronary bypass graft; K21.9 Gastro-esophageal reflux disease without esophagitis
CPT/HCPCS: 0241U-QW; 31500; 36415; 36600; 70450-TC; 71045-TC-FY; 80048; 80053; 81003; 82140; 82803; 82962; 83605; 83735; 83880; 84100; 84443; 84484; 85025; 85384; 85610; 85730; 86850; 86900; 86901; 87040; 87045; 87046; 87070; 87086; 87186; 87205; 87324; 87449; 93005; 93010; 93306-TC; 94002; 94660; 99285-25; J1250; J1644; J3490; P9047